=== PATIENT | male | born 1945 | race Caucasian/White ===

== ENCOUNTER 2023-04-07 12:19 | Emergency (ER) | payer MEDICARE, OTHER, SELFPAY ==
[2023-04-07 12:22] VITALS: BP 148/85; PULSE 72; RESP 14; TEMP 36.4; O2SAT 92; BMI 35.9
--- NOTE | 2023-04-07 12:56 | CT_ITS ---
HISTORY: pain. Tingling around right ear, history of throat cancer. TECHNIQUE: Helically acquired images were obtained of the neck without contrast. A radiation dose optimization technique was used for this scan. 299 images. COMPARISON: None. FINDINGS: NASOPHARYNX: Unremarkable. SUPRAHYOID NECK: Unremarkable oropharynx, oral cavity, parapharyngeal space, and retropharyngeal space. INFRAHYOID NECK: Mild soft tissue thickening of the epiglottis, supraglottic larynx with left asymmetry extending to the hypopharynx and left vocal folds. Mild anterior subcutaneous edema THYROID: Diminutive. SALIVARY GLANDS: Fatty replacement bilaterally. LYMPH NODES: No cervical or supraclavicular lymphadenopathy. VASCULAR STRUCTURES: Calcified carotid plaque noted. ORBITS: Bilateral lens resections. PARANASAL SINUSES: Small frontal ethmoid mucous retention cyst. MASTOID AIR CELLS: Clear. OSSEOUS STRUCTURES: Right mandibular molar extraction site noted. Degenerative changes of the cervical spine with anterior osteophytes noted. Midline sternotomy. LUNG APICES: Mild scarring. CT/Soft Tissue Neck without Contr IMPRESSION: Mild soft tissue thickening and asymmetry of the epiglottic and larynx without significant airway narrowing, which may be related to posttreatment change. Difficult to exclude tumor recurrence on noncontrast examination. Mild anterior subcutaneous edema without definite fluid collection. Electronically Signed: Yamila Fischer MD at 14:04 EDT ,
--- NOTE | 2023-04-07 13:16 | EX.ED.DYSGE1 ---
HPI History of Present Illness Chief Complaint: Numb/Ting Narrative Narrative: Presents with left facial numbness for a few weeks, it is only the lower part of the face in the mandibular region. He does have a history of prior surgery and cancer in that region. He had radiation. He has no difficulty swallowing. No fevers or chills. No vision changes weakness or any other symptoms. PFSH PFSH Allergy/AdvReac Type Severity Reaction Status Date / Time codeine Allergy Upset Verified 04/07/23 12:21 Stomach Penicillins Allergy Anaphylaxis Verified 04/07/23 12:21 adhesive tape AdvReac Hives Verified 04/07/23 12:21 Social History Smoking Status: Never smoker ROS ROS ED ROS Narrative Past medical history: Reviewed Medications: Reviewed Social history: Noncontributory Review of systems: All systems negative except as indicated General: No fever Eyes: No visual changes ENT: No upper airway congestion, normal voice Musculoskeletal: Denies myalgias no difficulty with ambulation Skin: No rash Neurological: No memory loss, confusion or any focal weakness. Peripheral numbness of the lower part of the face. EXAM Physical Exam Narrative Exam Narrative: Physical exam General: Well nourished, Well developed, No Acute Distress Head: Normocephalic, Atraumatic Eyes: Conjunctiva not pale ENT: Moist mucous membranes. No facial droop. Normal voice. Neck: Supple, Nontender, No lymphadenopathy Cardiovascular: Regular rate, Regular rhythm Respiratory: No distress, CTA bilaterally Abdomen: Soft, Nontender, Nondistended Back: Nontender, Normal Inspection. Negative for: CVA tenderness Extremities: Nontender, No edema Skin: Normal color, No rash Neurological: Alert, Normal Strength, decreased sensation over the mandibular part of the trigeminal nerve region. There is no decreased sensation over the other branches or forehead. Otherwise no other neurological symptoms. Const Vital Signs: 04/07/23 12:22 Temperature 97.6 F L Temperature Source Temporal Pulse Rate 72 Respiratory Rate 14 Blood Pressure 148/85 H Blood Pressure Mean 106 Pulse Ox 92 Oxygen Delivery Method Room Air MDM MDM MDM Narrative Medical decision making narrative: He was unremarkable, there is some edema which could cause patient's peripheral neuropathy, there is no abscess I do not see any signs of infection. I will refer the patient to ENT. If he gets worse he is to return. Radiography Diagnostic Testing: Clinical Impression(s) from Imaging Studies Soft Tissue Neck CT 04/07/23 12:56 IMPRESSION: Mild soft tissue thickening and asymmetry of the epiglottic and larynx without significant airway narrowing, which may be related to posttreatment change. Difficult to exclude tumor recurrence on noncontrast examination. Mild anterior subcutaneous edema without definite fluid collection. Electronically Signed: Yamila Fischer MD at 14:04 EDT , Discharge Plan Triage Chief Complaint: Numb/Ting ED Provider: Hoang Knowles Dx/Rx/DC Orders Clinical Impression: Trigeminal neuropathy, Neck pain Instructions: What Is Peripheral Neuropathy Primary Care Provider: DAMIAN MATTHEWS Referrals: Chava Rosenbaum MD [Med Staff - Active Staff] - 3-5 Days [facility] Doctor,Out of [Non-Staff] - Disposition Disposition: Home, Self Care
--- NOTE | 2023-04-07 13:45 | CM.ED ---
Social Work SW met with patient and patient's and introduced self and role as [facility] SW. Patient seated on chair and agreeable to speak to SW with patient's present. SW inquired about completion of ADs. Patient confirms he has completed his LW and HCPOA naming his , Soraida, as HCPOA with no alternates. Patient reports they are new to the area and haven't provided a copy to [facility]. SW encouraged patient to bring in a copy to add to patient's chart; patient voiced understanding. Marisel Samayoa MSW, DANIELA
== END 2023-04-07 14:19 | disposition home or self-care (01) ==
PROVIDERS: Emergency Provider Emergency Medicine; Visit Provider Emergency Medicine
DX: G50.9 Disorder of trigeminal nerve, unspecified (principal); M54.2 Cervicalgia; R60.9 Edema, unspecified
CPT/HCPCS: 70490; 99282

== ENCOUNTER → 2023-12-10 | Outpatient (CLI) | payer MEDICARE, OTHER, SELFPAY | END | disposition home or self-care (01) | LOC: LABSPEC 10:27 | PROVIDERS: Referring Provider Internal Medicine; Visit Provider Internal Medicine | DX: E87.5 Hyperkalemia (principal) | CPT/HCPCS: 84132 ==

== ENCOUNTER → 2023-12-17 | Outpatient (CLI) | payer MEDICARE, OTHER, SELFPAY ==
--- NOTE | 2023-12-17 16:34 | CT_ITS ---
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 The protocol utilizes one or more of the following dose reduction techniques: automated exposure control, adjustment of mA and/or kV according to patient size,and/or use of iterative reconstruction technique. IV Contrast dosage and agent: IV 75mL Isovue-370 RADIATION DOSAGE (If Supplied By Facility): CTDIvol = ( 17.86 ) mGy, DLP = ( 571.01 ) mGycm COMPARISON: CT Soft Tissue-NeckOct 2022 1:14pm FINDINGS: NASOPHARYNX: Unremarkable. SUPRAHYOID NECK: Unremarkable oropharynx, oral cavity, parapharyngeal space, and retropharyngeal space. There is chronic thickening and straightening of the epiglottis most likely due to scarring. INFRAHYOID NECK: Unremarkable larynx, hypopharynx, and supraglottis. THYROID: No focal lesions. SALIVARY GLANDS: Fatty infiltration of the submandibular glands. Normal parotid and sublingual glands. LYMPH NODES: No cervical or supraclavicular lymphadenopathy. VASCULAR STRUCTURES: Unremarkable. VISUALIZED PORTIONS OF THE ORBITS, PARANASAL SINUSES, MASTOID AIR CELLS AND SKULL BASE: Unremarkable. BONES: Unremarkable. THORACIC INLET: Clear lung apices. CT/Soft Tissue Neck WITH Contrast IMPRESSION: There is no evidence of recurrent neoplasm or metastatic disease. Electronically Signed: Mikie Way MD at 0:15 EDT ,
[2023-12-17 17:07] LABS: CREATININE FINGERSTICK < 1.0 mg/dL (0.70-1.30); EGFR FINGERSTICK > 60.0000 mL/min (>60)
== END | disposition home or self-care (01) ==
LOC: CT 16:31
PROVIDERS: Visit Provider Internal Medicine
DX: C02.9 Malignant neoplasm of tongue, unspecified (principal); H92.02 Otalgia, left ear
CPT/HCPCS: 70491; Q9967

== ENCOUNTER 2024-02-06 13:30 | Outpatient (RCR) | payer MEDICARE, OTHER, SELFPAY ==
--- NOTE | 2024-01-06 12:22 | HP.PTEVAL ---
Patient's Visit Information Visit Information Visit Information: AUSTIN POWELL is a 78 year old M referred to Physical Therapy by Dr. Candace Nino MD with a diagnosis of DDD, sciatica. Date of Evaluation: 01/06/24 Physical Therapist: Imer Silva, DPT, OCS, CSCS Visit Plan Frequency: 3x /Week Duration: 4-6 Weeks Plan: 3x/week for 4-6 weeks as needed for 1. NS education and core strength mat 2. rollout and MH and stretch to LB, HS B and quads, stretch psoas. LB ROM exercises Progress to HEP IE HEP: PPT 15x, seated flexion 10x and NS standing position education with HO Subjective Subjective: Dr. Nino sent over b/c he gets pain in R leg lower and cannot stand any further. it is sciatic. Has also pain under buttocks in both legs. No back pain to speak of at least non unusual. Leg pain has been for a month or so for no apparent reason. Gone with sitting. No other treatment, he does not like meds. Considered chiropractor. No regular exercises. Walking is main exercise but cannot go as far as he wants to. Can only stand and talk for 10 minutes. Not employed. Sleep is OK as far as this is concerned. Basic ADLs are fine. Steps ar enot a problem. Hobbies : 2 antique cars but can';t work on them. Goes to car shows but has to sit. Pain R leg pain: Pain Intensity (Out of 10): 0 Pain Intensity Range: 0 and 7 Objective Objective: Walks with cane in R UE mod I, and can walk safely without it. Traser chair and bed stiff but I. Good balance. Lb AROM very stiff, mx limited in flexion and extension and extension gives some back pain, SB mod limited. quads and HS are max tight B with pain lying flat, + kathi test, and -35 90/90 test B. HSR>L tender to palpation. LE joints and AROM WFL and no asymmetries. reflexes 2/3 patella and achilles B sensation LE WNL to gross light touch. strength 4/5 B LE, core at 3/5 ext adn flexion. - slump, - SLR, weakness noted in core with seated hip flexion test and lean. - FIDENCIO, - FADDIR Balance/Special Test Scores Oswestry Low Back Score: 8 Goals Goal 1:: I appropriate HEP to limit future problems Goal Time Frame: 4-6 Weeks Goal 2:: Lie flat on back without back pain Goal Time Frame: 4-6 Weeks Goal 3:: oswestry LB 4 or better Goal Time Frame: 4-6 Weeks Goal 4:: stand 20 minutes without leg pain increase Goal Time Frame: 4-6 Weeks Rehabilitation Potential Physical Therapy Diagnosis: stiffness and DDD in LB effecting standing, walking quality of life. Rehabilitation Potential: Fair Anticipated Interventions Patient/Client Instruction: Educate patient on: Condition and Plan of Care For the Purpose of:: To decrease pain, To increase ROM, To improve muscle performance and motor function, To increase tolerance to activity/condition/position, To improve ability of physical actions for home/community/work/leisure and To improve gait and locomotor functions Therapeutic Exercise to Include: Strength training, Postural training, Gait and locomotor training, Passive ROM, Active ROM and Dynamic Lumbar Stabilization For the Purpose of:: To decrease pain, To increase ROM, To improve nutrient delivery to tissue, To improve muscle performance and motor function, To increase tolerance to activity/condition/position, To improve ability of physical actions for home/community/work/leisure and To improve gait and locomotor functions Manual Therapy Techniques to Include: Mobilization, Passive ROM and Soft tissue mobilization For the Purpose of:: To decrease pain, To increase ROM, To improve nutrient delivery to tissue, To improve muscle performance and motor function and To increase tolerance to activity/condition/position Thermo therapy (hot pack): Yes For the Purpose of:: To improve nutrient delivery to tissue Text: Thank you for the opportunity to evaluate your patient. For Medicare and Medicare HMO plans, please review the plan of care and approve it. It will need to be FAXED BACK to us at [phone] for Medicare purposes. For Medicare only, by signing this I certify the plan of care. Please let me know if there are questions or concerns regarding this plan of care. Physician Signature: Date:
--- NOTE | 2024-02-06 14:15 | HP.PTDCSUM ---
Discharge Summary D/C summary: It has been my pleasure to treat AUSTIN POWELL referred by Dr. Candace Nino MD, with the diagnosis of DDD, sciatica for a total of 12 visit(s). Discharge Date: 02/06/24 Please see the following information for a summary of their discharge status. Subjective Subjective: Feels like things are better. Don't seem to have poasterior leg pain and R leg is much less intense. Feels like he can do the exercises and use back machine at home and continue improvement. Saw doctor yesterday and is Ok with plan. R leg pain 5/10 with walking and gone with sitting, much better than it used to be. Still walking about 20 minutes and then needs to rest. Pain R leg pain: Pain Intensity (Out of 10): 0 Overall Improvement % Improvement: 50 Objective Objective/Function: ROM flexion still limited and stiff, ext stiff, walking I short distances without gait deviations. Longer walks>20 minutes is where his pain kicks in and limping subcjectvely Goals Goal 1:: I appropriate HEP to limit future problems Goal Progress: Goal Met Goal 2:: Lie flat on back without back pain Goal Progress: Goal Met Goal 3:: oswestry LB 4 or better Goal Progress: Progressing Goal 4:: stand 20 minutes without leg pain increase Goal Progress: Not Progressing Plan Plan: d/c to HEP D/C Information Discharge Comments: Will contact doctor if worsens again. d/c sentence: If there are questions or concerns regarding this patient's physical therapy, please feel free to call me at [phone]. Thank you for the referral of this patient. Sincerely, Imer Silva, DPT, OCS, CSCS Balance/Gait/Functional tests Balance/Special Test Scores Oswestry Low Back Score: 8 Improvement % Improvement: 50
== END 2024-02-06 19:00 | disposition home or self-care (01) ==
LOC: PT 13:30
PROVIDERS: Visit Provider Internal Medicine
DX: M51.36 Other intervertebral disc degeneration, lumbar region (principal); M54.31 Sciatica, right side; M54.32 Sciatica, left side
CPT/HCPCS: 97012; 97110; 97161; 97530

== ENCOUNTER → 2024-03-18 | Outpatient (CLI) | payer OTHER, SELFPAY ==
--- NOTE | 2024-03-18 15:38 | CT_ITS ---
STUDY: CT SOFT TISSUE NECK WITH CONTRAST REASON FOR EXAM: Male, 78 years old. POSS OSTEOMYELITIS JAW. History of a abscessed tooth. 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 RADIATION DOSAGE (If Supplied By Facility): CTDIvol = ( 20.01 ) mGy, DLP = ( 504.97 ) mGycm TECHNIQUE: The patient was scanned in a multi-detector CT scanner. High resolution transaxial imaging was performed following intravenous administration of IV 75mL Isovue-300. Sagittal and coronal images were reconstructed. Individualized dose optimization techniques were used for this CT. COMPARISON: Comparison is made with prior study dated December 17, 2023. FINDINGS: Stable postsurgical changes in the left-sided neck following resection. No recurrent mass is seen. Normal visualized nasopharynx. Normal retropharyngeal space. Normal perivertebral space. Normal visualized bilateral faucial tonsils. The visualized tongue, tongue base and oropharynx are normal. The visualized cervical lymph nodes (levels I-) are within normal size limits, and maintain normal morphology. There is no demonstrated solid or cystic mass lesion. There is no abnormal contrast enhancement. Normal epiglottis, bilateral vallecula and hypopharynx. The pre-epiglottic and paraglottic adipose spaces are normal. Normal visualized bilateral piriform sinuses, aryepiglottic folds, vocal cords, and arytenoid-cricoid articulations. Normal subglottic trachea. Normal bilateral lobes of the thyroid gland. Normal visualized pulmonary apices. Normal visualized paranasal sinuses. There is multilevel degenerative changes of the cervical spine. No evidence of osteomyelitis of the mandible. Degenerative changes of the cervical spine. CT/Soft Tissue Neck WITH Contrast IMPRESSION: Stable examination. Electronically Signed: Satnam Becker MD at 9:13 EDT ,
[2024-03-18 16:09] LABS: CREATININE FINGERSTICK < 1.0 mg/dL (0.70-1.30); EGFR FINGERSTICK > 60.0000 mL/min (>60)
== END | disposition home or self-care (01) ==
LOC: CT 15:36
PROVIDERS: Referring Provider Nurse Practitioner Family; Visit Provider Nurse Practitioner Family
DX: Z01.812 Encounter for preprocedural laboratory examination (principal); M86.9 Osteomyelitis, unspecified
CPT/HCPCS: 70491; Q9967

== ENCOUNTER → 2024-07-31 | Outpatient (CLI) | payer OTHER, SELFPAY ==
--- NOTE | 2024-07-31 09:49 | CT_ITS ---
PROCEDURE: SINUS/FACIAL BONE REASON FOR EXAM: History of squamous cell carcinoma of the tongue. Osteoradionecrosis of the mandible. Chronic kidney disease stage 3. Hypertension. Coronary artery disease. TECHNIQUE: CT of the paranasal sinuses without contrast. Contiguous axial scans of 1.25 mm slice thicknesses. CONTRAST: Not given. COMPARISON: CT soft tissue neck dated 03/18/2024. FINDINGS: Frontal: Frontal sinuses and frontoethmoidal recesses appear clear. Ethmoid: Ethmoid air cells appear clear. Sphenoid: Sphenoid sinuses and sphenoethmoidal recesses appear clear. Maxillary: Maxillary sinuses appear clear. The ostiomeatal units appear widely patent. Turbinates: Unremarkable. Nasal Septum: Rightward deviation. Mastoids/Middle Ears: Clear at visualized levels. Neck: Stable postoperative changes, left side of the neck. No recurrent masses. No suspicious adenopathy. Vasculature: Atherosclerotic calcific disease involving the carotids. Other osseous structures: Chronic erosive change involving the right hemimandible. Mild ossification in the adjacent soft tissues. Artifact from dental enhancements cervical spondylosis. CT/Sinus/Facial Bone IMPRESSION: 1. No abnormalities involving the paranasal sinuses. 2. Stable postoperative findings involving the left side of the neck. 3. Chronic erosive changes involving the right hemimandible most likely from p revious infection. 4. Rightward deviation nasal septum. 5. Other nonacute findings detailed above. One or more dose reduction techniques were used (e.g., Automated exposure contr ol, adjustment of the mA and/or kV according to patient size, use of iterative reconstruction technique). Reading Location: [facility]
== END | disposition home or self-care (01) ==
PROVIDERS: PCP Internal Medicine
DX: M27.2 Inflammatory conditions of jaws (principal); M86.9 Osteomyelitis, unspecified
CPT/HCPCS: 70486

== ENCOUNTER → 2024-08-17 | Outpatient (CLI) | payer MEDICARE, OTHER, SELFPAY ==
--- NOTE | 2024-08-17 16:11 | MRI_ITS ---
PROCEDURE: SPINE LUMBAR (ROUTINE) REASON FOR EXAM: Bilateral leg numbness. Pain. TECHNIQUE: Noncontrast lumbar spine MRI. COMPARISON: Lumbar spine radiograph from 12/25/2023. FINDINGS: Lumbar vertebral bodies maintain a normal height. There is mild levoscoliosis of the lumbar spine. There is diminished signal intensity involving the discs from L3-S1 related to degenerative disc disease. There are Modic type 2 endplate degenerative changes at L5-S1 and mildly at L3-L4. No acute fracture or subluxation is identified. The tip of the conus medullaris terminates at L1-L2 and signal intensity of the included spinal cord is within normal limits. Paraspinous musculature is unremarkable. Left renal cysts are identified. Individual levels: L1-2: No disc herniation, central canal stenosis, or significant neural foraminal narrowing. Mild facet arthropathy is present. L2-3: Mild disc bulge and mild facet arthropathy with no significant central canal stenosis or neural foraminal narrowing. L3-4: Circumferential disc bulge and facet/flavum hypertrophy results in severe central canal stenosis. Moderate to severe right and moderate left neural foraminal narrowing is present. L4-5: Mild anterolisthesis with circumferential disc bulge and facet/flavum hypertrophy results in significant severe central canal stenosis. Moderate to severe right and moderate left neural foraminal narrowing is present. L5-S1: Disc bulge and facet arthropathy with no significant central canal stenosis. Moderate right and [id number] left neural foraminal narrowing is present. MRI/Spine Lumbar (Routine) IMPRESSION: 1. Multilevel degenerative disc disease and spondylosis with significant severe central canal stenosis at L4-L5 as well as severe central canal stenosis at L3-L4. Multilevel varying degrees of neural foramina l narrowing are present and greatest from L3-L5. 2. Levoscoliosis. [facility]
== END | disposition home or self-care (01) ==
LOC: MRI 16:08
PROVIDERS: PCP Internal Medicine; Referring Provider Internal Medicine; Visit Provider Internal Medicine
DX: M51.379 Other intervertebral disc degeneration, lumbosacral region without mention of lumbar back pain or lower extremity pain (principal)
CPT/HCPCS: 72148

== ENCOUNTER 2024-08-18 12:50 | Emergency (ER) | payer MEDICARE, OTHER, SELFPAY ==
[2024-08-18 12:51] VITALS: BP 168/88; PULSE 73; RESP 15; TEMP 36.1; O2SAT 96; BMI 34.3
[2024-08-18 13:51] VITALS: BP 168/86; PULSE 66; RESP 19; O2SAT 97
--- NOTE | 2024-08-18 13:54 | ED.VIS.CHEST ---
HPI History of Present Illness Chief Complaint: Chest Pain Informant: patient Narrative Narrative: Patient is an 79-year-old male with history of oropharyngeal cancer, CKD 3, coronary artery disease/IA, COPD, obstructive sleep apnea and recent jaw surgery (outpatient) presenting with episodes of chest pain. Patient states that since last night he has been having intermittent pains in his chest. He states that for started with a shocking sensation rating from his right shoulder to his left lower chest. He notes he has had intermittent episodes of the shooting/shocking pain going across his chest. Just prior to my arrival he had another 1 that was more in his epigastric/lower chest. They are anterior. They do not radiate to his neck or back. He denies any aggravating or alleviating factors. Notes that he did have MRI of his lumbar spine yesterday because he has been having intermittent leg pains at night. States this does not feel anything like those pains. Denies having any pacemaker or ICD. Denies any other chest pains. Denies any shortness of breath. Denies any swelling of his legs. 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 Right renal mass Chronic kidney disease, stage 3a Dysphagia Osteoradionecrosis of jaw Sciatica Hypertension Hyperlipidemia Gout Peripheral neuropathy CAD (coronary artery disease) DDD (degenerative disc disease) Obesity Hypothyroid Facial paresthesia Skin cancer Overactive bladder Osteoarthritis COPD (chronic obstructive pulmonary disease) BRADY (obstructive sleep apnea) Diabetes History of abscessed tooth Thrombocytopenia Home Medications ?Medication ?Instructions ?Recorded ?Last Taken ?Type allopurinol 100 mg tablet 100 mg PO QDAY 05/13/24 Unknown History aspirin 81 mg tablet,delayed 81 mg PO QDAY 05/13/24 Unknown History release cholecalciferol (vitamin D3) 50 50 mcg PO QDAY 05/13/24 Unknown History mcg (2,000 unit) capsule ferrous sulfate 325 mg (65 mg 325 mg PO QDAY 05/13/24 Unknown History iron) tablet (Feosol) levothyroxine 125 mcg capsule 125 mcg PO QDAY 05/13/24 Unknown History losartan 25 mg tablet 25 mg PO QDAY 05/13/24 Unknown History rosuvastatin 20 mg tablet 20 mg PO QDAY 05/13/24 Unknown History tiotropium 2.5 mcg-olodaterol 2.5 2 puff inhalation Q24H 05/13/24 Unknown History mcg/actuation mist for inhalation (Stiolto Respimat) albuterol sulfate 90 mcg/actuation 2 puff inhalation Q6H PRN 05/14/24 Unknown History aerosol inhaler magnesium oxide 420 mg PO BID 06/01/24 Unknown History pentoxifylline 400 mg 400 mg PO BID 06/01/24 Unknown History tablet,extended release cetirizine 10 mg tablet 10 mg PO QDAY 06/16/24 Unknown History chlorhexidine gluconate 0.12 % PO BID 06/16/24 Unknown History mouthwash metformin 500 mg tablet 1,000 mg PO QDAY 06/16/24 Unknown History multivitamin 1 tab PO QAM 06/16/24 Unknown History Allergy/AdvReac Type Severity Reaction Status Date / Time empagliflozin Allergy Intermediate PT UNSURE Verified 08/18/24 13:02 OF REACTION codeine Allergy Upset Verified 08/18/24 13:02 Stomach Penicillins Allergy Anaphylaxis Verified 08/18/24 13:02 adhesive tape AdvReac Hives Verified 08/18/24 13:02 Family History Mother Cancer Father Asthma Grandmother Heart disease Myocardial infarction Sudden cardiac CVA (cerebral vascular accident) Son CVA (cerebral vascular accident) Diabetes Son Schizophrenia Son Osteoarthritis Psoriasis Surgical History History of hernia repair History of cataract extraction Hx of tonsillectomy History of appendectomy Status post double vessel coronary artery bypass (~1989) Social History Smoking Status: Former smoker alcohol intake: current alcohol intake frequency: holidays/special occasions only substance use type: does not use ROS ROS ED Constitutional Constitutional ED: Denies chills or fever(s) Cardiovascular Cardiovascular: Reports as per HPI and chest pain; Denies palpitations Respiratory/Chest Respiratory/Chest: Denies cough or dyspnea Gastrointestinal Gastrointestinal: Denies nausea or vomiting Musculoskeletal Musculoskeletal: Denies arthralgias or myalgias Integumentary Denies rash Neurologic Neurologic: Denies paresthesias or weakness Hematologic/Lymphatic Hematologic/Lymphatic: Denies easy bleeding or easy bruising EXAM Physical Exam Const Vital Signs: 08/18/24 12:51 08/18/24 13:51 08/18/24 14:00 Temperature 96.9 F L Temperature Source Temporal Pulse Rate 73 66 Respiratory Rate 15 19 H Blood Pressure 168/88 H 168/86 H Blood Pressure Mean 114 113 Pulse Ox 96 97 96 Oxygen Delivery Method Room Air Room Air 08/18/24 14:00 08/18/24 16:00 Temperature Temperature Source Pulse Rate 66 69 Respiratory Rate 19 H 18 Blood Pressure 178/88 H Blood Pressure Mean 118 Pulse Ox 98 98 Oxygen Delivery Method Positive well nourished and well developed General Appearance ED: well developed and NAD HEENT Reports moist mucous membranes Eyes PERRL Neck supple and no JVD Chest Wall inspection of chest normal and palpation of chest normal Resp normal respiratory effort and clear to auscultation bilaterally Cardio regular rate and regular rhythm Peripheral Pulses: radial pulses present and dorsalis pedis pulses present GI normal to inspection, nondistended, normoactive bowel sounds, soft to palpation and non-tender Extremity normal to inspection General Extremety ED: Negative for edema General Extremity: Negative for edema Neuro oriented x3 Sensorium / Orientation: awake and alert Motor Exam: Negative for general weakness Psych mental status grossly normal Skin no rashes or lesions noted and no wounds Heart Score History: Slightly/Non-Suspicious ECG: Normal Age: >/= 65 years Risk Factors: >/= 3 Risk Factors or History of CAD Troponin: </= Normal Limit Score: 4 MDM MDM MDM Narrative Medical decision making narrative: Patient evaluated for shocking episodes of chest pain that started yesterday afternoon. He does not tell his about until 11 AM today. Does have a history of coronary artery bypass surgery. Cardiac workup including high sensitive troponin x 2, CBC and BMP obtained which is largely normal. He has a history of low magnesium so I did check that. This was normal. He has mild hyponatremia however patient reports a chronic history of this. Patient does not seem to have further episodes in the emergency room. Chest x-ray reviewed by myself as well as radiology does not show any acute process. Work up largely normal. Patient be discharged home. He is comfortable. Discussed with pain could be radicular in nature given the sharp shocking nature. Also discussed that could be associated with the scar tissue/chest wall pain from prior sternotomy. He will follow-up outpatient with his primary care doctor. Given return precautions to the emergency room Lab Data Labs: Laboratory Results - last 24 hr 08/18/24 08/18/24 13:13 16:06 WBC 8.7 RBC 4.21 L Hgb 12.8 L Hct 39.7 L MCV 94.3 H MCH 30.4 MCHC 32.2 RDW Std Deviation 44.2 H RDW Coeff of Jordi 12.8 Plt Count 133 L MPV 11.4 Neut % (Auto) Not Reportable Absolute Neuts (auto) 4.8 Absolute Lymphs (auto) 3.46 Neutrophils % (Manual) 38 L Band Neutrophils % 1 Lymphocytes % (Manual) 40 Monocytes % (Manual) 18 H Metamyelocytes % 2 H Myelocytes % 1 H Diff Path Review May foll Atypical Lymphocytes 1+ Platelet Estimate SLT DEC RBC Morphology NORM C+C Sodium 130 L Potassium 4.1 Chloride 93 L Carbon Dioxide 30.0 Anion Gap 7 BUN 13 Creatinine 1.08 Estim Creat Clear Calc 58.37 Est GFR (MDRD) Af Amer 84 Est GFR (MDRD) Non-Af 70 BUN/Creatinine Ratio 12.0 Glucose 145 H Calcium 9.5 Magnesium 1.9 Troponin I High Sens 39 41 Radiography Chest X-Ray - ED: 2 View, Read by ED Physician, Read by Radiologist and No Acute Disease Diagnostic Testing: Clinical Impression(s) from Imaging Studies Chest X-Ray 08/18/24 14:10 IMPRESSION: No active cardiopulmonary disease. Reading Location: [facility] Rhythm Strip Rhythm Strip: Sinus Rhythm Rate: 70 Ectopy: None EKG Initial EKG: Attestation: I personally reviewed and interpreted this EKG as follows: Interpretation: Sinus Rhythm Comments: Normal sinus rhythm rate of 70 bpm Left axis deviation Incomplete right bundle carlene block Normal ST segments Prior EKG tracings: available for review Prior: Unchanged Discharge Plan Triage Chief Complaint: Chest Pain ED Provider: Genesis Urias Dx/Rx/DC Orders Clinical Impression: Chest pain Instructions: ED Chest Pain, Noncardiac Prescriptions: No Action albuterol sulfate 90 mcg/actuation HFA aerosol inhaler 2 puff inhalation Q6H PRN multivitamin Tablet 1 tab PO QAM chlorhexidine gluconate 0.12 % mouthwash PO BID rosuvastatin 20 mg tablet 20 mg PO QDAY allopurinol 100 mg tablet 100 mg PO QDAY losartan 25 mg tablet 25 mg PO QDAY levothyroxine 125 mcg capsule 125 mcg PO QDAY cholecalciferol (vitamin D3) 50 mcg (2,000 unit) capsule 50 mcg PO QDAY aspirin 81 mg tablet,delayed release (DR/EC) 81 mg PO QDAY ferrous sulfate [Feosol] 325 mg (65 mg iron) tablet 325 mg PO QDAY Stiolto Respimat 2.5-2.5 mcg/actuation mist 2 puff inhalation Q24H magnesium oxide 400 mg magnesium capsule 420 mg PO BID pentoxifylline 400 mg tablet extended release 400 mg PO BID Rx Instructions: must administer with a meal/food metformin 500 mg tablet 1,000 mg PO QDAY cetirizine 10 mg tablet 10 mg PO QDAY Primary Care Provider: Candace Nino Referrals: Candace Nino MD [Primary Care Provider] - Activity Restrictions/Additional Instructions: Your cardiac workup today was largely normal. Your sodium was mildly low on your labs (130). This can be from decreased sodium intake or from certain blood pressure medications including losartan. Please follow-up with your primary care doctor to have this rechecked. Print Language: [place] Disposition Disposition: Home, Self Care Discharge Date/Time: 08/18/24 16:56
[2024-08-18 14:00] VITALS: BP 178/88; PULSE 66; RESP 19; O2SAT 96; O2SAT 98
[2024-08-18] MEDS: Aspirin 81 MG TAB.CHEW 324 MG PO (14:09)
--- NOTE | 2024-08-18 14:10 | RAD_ITS ---
PROCEDURE: CHEST PA AND LATERAL REASON FOR EXAM: Chest pain TECHNIQUE: Frontal and lateral views of the chest. COMPARISON: None. FINDINGS: The heart size is normal. Aorta is atherosclerotic and tortuous. The mediastinal contour is unremarkable. The lungs are clear. Multilevel spondylosis. Median sternotomy wires. Cardiac monitoring leads overlie the chest wall. RAD/Chest PA and Lateral IMPRESSION: No active cardiopulmonary disease. Reading Location: [facility]
[2024-08-18 14:17] LABS: Differential Indicated MANUAL DIFF; Hematocrit 39.7 % (40-54); Hemoglobin 12.8 g/dL (13.0-16.5); Mean Corp Hgb Conc 32.2 g/dL (32-36); Mean Corpuscular Hgb 30.4 pg (27.0-32.0); Mean Corpuscular Volume 94.3 fL (80-94); Mean Platelet Vol. 11.4 fl (6.2-12.0); POSITIVE COUNT YES; POSITIVE DIFFERENTIAL YES; POSITIVE MORPHOLOGY YES; Platelet Count 133 K/mm3 (150-450); RBC Distribution Width CV 12.8 % (11.6-14.6); RBC Distribution Width SD 44.2 fl (35.1-43.9); Red Blood Count 4.21 M/mm3 (4.6-6.2); White Blood Count 8.7 K/mm3 (4.4-11.0)
[2024-08-18 14:38] LABS: Anion Gap 7 (5-15); BUN 13 mg/dL (7-18); Calcium,Total 9.5 mg/dL (8.5-10.1); Chloride 93 mmol/L (98-107); Creatinine, Serum 1.08 mg/dL (0.70-1.30); EST Glomerular Filtration Rate 70 mL/min (>60); Est Glom Filt Rate - Afr Amer 84 mL/min (>60); Estimated Creatinine Clearance 58.37 ml/min; Glucose 145 mg/dL (74-106); Magnesium 1.9 mg/dL (1.6-2.6); Potassium 4.1 mmol/L (3.5-5.1); Sodium Level 130 mmol/L (136-145); Troponin-I HS (w/2H Reflex) 39 pg/mL (3.0-78.0)
[2024-08-18 14:48] LABS: Absolute Lymphocyte Count 3.46 X10^3/uL (0.83-4.51); Absolute Neutrophil Count 4.8 X10^3/uL (2.0-7.7); Lymphocyte 40 % (19-41); Metamyelocyte 2 % (0-1); Monocyte 18 % (0-10); Myelocyte 1 % (0-0); Neutrophil-Band 1 % (0-5); Neutrophil-Segmented 38 % (47-70)
[2024-08-18 14:49] LABS: Atypical Lymphocyte 1+ %; Platelet Estimate SLT DEC (ADEQ); Red Cell Morphology NORM C+C NORMAL (NORM C&C)
[2024-08-18 15:58] LABS: Reflex Troponin-HS? (from REC) Y
[2024-08-18 16:00] VITALS: PULSE 69; RESP 18; O2SAT 98
[2024-08-18 16:38] LABS: Troponin-I HS 41 pg/mL (3.0-78.0)
[2024-08-19 14:22] LABS: Pathologist Review Reviewed
== END 2024-08-18 16:56 | disposition home or self-care (01) ==
PROVIDERS: Emergency Provider Emergency Medicine; PCP Internal Medicine; Visit Provider Emergency Medicine
DX: R07.9 Chest pain, unspecified (principal); J44.9 Chronic obstructive pulmonary disease, unspecified; E11.40 Type 2 diabetes mellitus with diabetic neuropathy, unspecified; E11.22 Type 2 diabetes mellitus with diabetic chronic kidney disease; N18.30 Chronic kidney disease, stage 3 unspecified; I45.10 Unspecified right bundle-branch block; E87.1 Hypo-osmolality and hyponatremia; R79.0 Abnormal level of blood mineral; I12.9 Hypertensive chronic kidney disease with stage 1 through stage 4 chronic kidney disease, or unspecified chronic kidney disease; I25.10 Atherosclerotic heart disease of native coronary artery without angina pectoris; I25.2 Old myocardial infarction; E78.5 Hyperlipidemia, unspecified; M10.9 Gout, unspecified; E03.9 Hypothyroidism, unspecified; G47.33 Obstructive sleep apnea (adult) (pediatric); Z95.1 Presence of aortocoronary bypass graft; Z88.0 Allergy status to penicillin; Z79.82 Long term (current) use of aspirin; Z79.84 Long term (current) use of oral hypoglycemic drugs; Z98.890 Other specified postprocedural states; Z79.899 Other long term (current) drug therapy; Z79.890 Hormone replacement therapy; Z85.828 Personal history of other malignant neoplasm of skin; Z87.891 Personal history of nicotine dependence; Z85.818 Personal history of malignant neoplasm of other sites of lip, oral cavity, and pharynx
CPT/HCPCS: 71046; 80048; 83735; 84484; 85025; 93005; 99284; A4216

== ENCOUNTER → 2024-09-24 | Outpatient (CLI) | payer MEDICARE, OTHER, SELFPAY ==
[2024-09-24 10:59] LABS: Hematocrit 43.6 % (40-54); Hemoglobin 14.3 g/dL (13.0-16.5); Mean Corp Hgb Conc 32.8 g/dL (32-36); Mean Corpuscular Volume 94.6 fL (80-94); Mean Platelet Vol. 11.2 fl (6.2-12.0); POSITIVE COUNT YES; POSITIVE MORPHOLOGY YES; Platelet Count 148 K/mm3 (150-450); RBC Distribution Width CV 12.9 % (11.6-14.6); Red Blood Count 4.61 M/mm3 (4.6-6.2); White Blood Count 7.1 K/mm3 (4.4-11.0)
[2024-09-24 11:05] LABS: Differential Indicated MANUAL DIFF
[2024-09-24 11:19] LABS: AST(SGOT) 18 U/L (<=37); Alanine Aminotransfer ALT/SGPT 14 U/L (<=46); Albumin, Serum 4.8 g/dL (3.4-4.8); Alkaline Phosphatase 76 U/L (40-129); Anion Gap 14 (5-15); BUN 12 mg/dL (4-19); BUN/Creat Ratio 11.5 RATIO (10-20); Calcium,Total 9.9 mg/dL (7.6-11.0); Carbon Dioxide 25.2 mmol/L (21.0-32.0); Chloride 95 mmol/L (98-108); Creatinine, Serum 1.06 mg/dL (0.70-1.20); EST Glomerular Filtration Rate 71 (>60); Globulin 2.4 g/dL (2.2-4.2); Glucose 109 mg/dL (70-99); Potassium 4.9 mmol/L (3.3-5.1); Protein, Total 7.2 g/dL (5.9-8.4); Sodium Level 135 mmol/L (133-145); Thyroid Stim Hormone (TSH) 0.431 uIU/mL (0.300-4.200); Total Bilirubin 0.37 mg/dL (0.00-1.30)
[2024-09-24 12:44] LABS: Basophil 1 % (0-1); Lymphocyte 31 % (19-41); Metamyelocyte 4 % (0-1); Monocyte 18 % (0-10); Myelocyte 1 % (0-0); Neutrophil-Band 5 % (0-5); Neutrophil-Segmented 40 % (47-70); Total Cells Counted 100 (MANUAL DIFF)
[2024-09-24 12:49] LABS: Platelet Estimate ADEQUATE (ADEQ); Reactive Lymphocyte 2+
[2024-09-24 12:50] LABS: Pathologist Review May foll
[2024-09-24 12:57] LABS: Absolute Neutrophil Count 3.2 X10^3/uL (2.0-7.7)
[2024-09-24 12:58] LABS: Absolute Lymphocyte Count 2.21 X10^3/uL (0.83-4.51)
== END | disposition home or self-care (01) ==
LOC: LABSPEC 10:19
PROVIDERS: PCP Internal Medicine; Referring Provider Internal Medicine; Visit Provider Internal Medicine
DX: E87.1 Hypo-osmolality and hyponatremia (principal); R20.2 Paresthesia of skin
CPT/HCPCS: 80053; 84443; 85025

== ENCOUNTER 2024-09-25 07:52 | Observation (INO) | payer MEDICARE, OTHER, SELFPAY ==
[2024-09-25] VITALS (8 sets, daily range): BP systolic 155–202; BP diastolic 64–105; PULSE 56–79; RESP 16–18; TEMP 36.6–36.7; O2SAT 93–99; BMI 34.8; BMI 33.8
--- NOTE | 2024-09-25 08:10 | EKG12_ITS ---
Test Reason : DIZZINESS Blood Pressure : */* mmHG Vent. Rate : 56 BPM Atrial Rate : 56 BPM P-R Int : 196 ms QRS Dur : 108 ms QT Int : 434 ms P-R-T Axes : 36 -62 19 degrees QTcB Int : 418 ms Sinus bradycardia Left axis deviation Low voltage QRS Incomplete right bundle branch block Inferior infarct (cited on or before 18-Aug-2024) Abnormal ECG When compared with ECG of 18-Aug-2024 12:57, No significant change was found Confirmed by Crow Strange ([id number]), film and video editor YASMANY KOHLI ([id number]) on 09/30/2024 10:06:42 AM Referred By: Confirmed By: Crow Strange
--- NOTE | 2024-09-25 08:10 | CT_ITS ---
EXAM: BRAIN/HEAD WITHOUT CONTRAST CLINICAL HISTORY: 79 y/o M with OFF BALANCE and photophobia, history of squamous cell carcinoma of the tongue. COMPARISON: CT sinus/face 07/31/2024. TECHNIQUE: Routine CT imaging of the head without IV contrast. Additional multiplanar reformats were obtained. Dose reduction techniques were used including intermediate exposure control (AEC),iterative reconstruction technique, and/or mA and/or KV dose adjustments based on patient's size. FINDINGS: Stable moderate generalized cerebral volume loss with concordant prominence of the ventricles and subarachnoid spaces. Mild scattered supratentorial white matter hypodensities. Chronic lacunar type infarcts within the right centrum semiovale. The knight-white matter interfaces are otherwise maintained. No acute intracranial hemorrhage or herniation. Prior ocular lens replacements. The orbits are otherwise unremarkable. Tiny retention cyst or polyps within the bilateral frontal sinuses. The visualized paranasal sinuses and mastoids are otherwise unremarkable. No acute calvarial fracture or scalp hematoma. CT/Brain/Head without Contrast IMPRESSION: 1. No acute intracranial finding. 2. Findings of chronic microvascular ischemic changes and age-related changes. Reading Location: [id number]
--- NOTE | 2024-09-25 08:11 | EX.ED.DYSGE1 ---
HPI History of Present Illness Chief Complaint: Dizziness Informant: patient and spouse/S.O. Narrative Narrative: 79-year-old male presenting to the emergency room with the chief complaint of dizziness. Patient states for the past 3 days he has been feeling dizzy. He denies any sense that the room is spinning but he states that when he goes to walk he feels very lightheaded like he is going to fall over. He denies any loss of arm or leg strength or coordination. He states that prior to this happening when he was looking at white buildings they seemed very bright and he would close his eyes for 20 to 30 seconds and then it would go away. He states the lights in the room are extremely bright. He denies headache. He denies any recent trauma or injuries. No new medications. He went to see his primary care doctor yesterday who ordered blood work which she was called last night was told it was normal. He states he has an MRI and a carotid ultrasound ordered. No chest pain palpitations shortness of breath. No recent fevers or illnesses. He denies neck pain. Patient did not take his medications yesterday or today. He states that he did have vertigo about 6 7 years ago and did physical therapy but this feels nothing like it. Towards the end of his ED course he tells me that when he got up this morning he seemed that when he looked at the window and the television they seem to move but that is now what he experienced with his prior vertigo. [facility] Medical History Squamous cell carcinoma of tongue Hx of myocardial infarction Right renal mass Chronic kidney disease, stage 3a Dysphagia Osteoradionecrosis of jaw Sciatica Hypertension Hyperlipidemia Gout Peripheral neuropathy CAD (coronary artery disease) DDD (degenerative disc disease) Obesity Hypothyroid Facial paresthesia Skin cancer Overactive bladder Osteoarthritis COPD (chronic obstructive pulmonary disease) BRADY (obstructive sleep apnea) Diabetes History of abscessed tooth Thrombocytopenia Home Medications ?Medication ?Instructions ?Recorded ?Last Taken ?Type allopurinol 100 mg tablet 100 mg PO QDAY 05/13/24 09/24/24 History aspirin 81 mg tablet,delayed 81 mg PO QDAY 05/13/24 09/24/24 History release cholecalciferol (vitamin D3) 50 50 mcg PO BID 05/13/24 09/24/24 History mcg (2,000 unit) capsule ferrous sulfate 325 mg (65 mg 325 mg PO QDAY 05/13/24 09/24/24 History iron) tablet (Feosol) levothyroxine 125 mcg capsule 125 mcg PO QDAY 05/13/24 09/24/24 History losartan 25 mg tablet 25 mg PO QDAY 05/13/24 09/24/24 History rosuvastatin 20 mg tablet 20 mg PO QDAY 05/13/24 09/24/24 History albuterol sulfate 90 mcg/actuation 2 puff inhalation Q6H PRN 05/14/24 Unknown History aerosol inhaler shortness of breath or wheezing magnesium oxide 800 mg PO BID 06/01/24 09/24/24 History cetirizine 10 mg tablet 10 mg PO QDAY 06/16/24 09/24/24 History chlorhexidine gluconate 0.12 % 15 ml PO BID 06/16/24 09/24/24 History mouthwash metformin 500 mg tablet 500 mg PO BID 06/16/24 09/24/24 History multivitamin 1 tab PO QAM 06/16/24 09/24/24 History Allergy/AdvReac Type Severity Reaction Status Date / Time empagliflozin Allergy Intermediate PT UNSURE Verified 09/25/24 07:53 OF REACTION codeine Allergy Upset Verified 09/25/24 07:53 Stomach Penicillins Allergy Anaphylaxis Verified 09/25/24 07:53 adhesive tape AdvReac Hives Verified 09/25/24 07:53 Family History Mother Cancer Father Asthma Grandmother Heart disease Myocardial infarction Sudden cardiac CVA (cerebral vascular accident) Son CVA (cerebral vascular accident) Diabetes Son Schizophrenia Son Osteoarthritis Psoriasis Surgical History History of hernia repair History of cataract extraction Hx of tonsillectomy History of appendectomy Status post double vessel coronary artery bypass (~1989) Social History Smoking Status: Former smoker alcohol intake: current alcohol intake frequency: holidays/special occasions only substance use type: does not use ROS ROS ED Constitutional Constitutional ED: Denies chills or weight loss Eyes Eyes: Reports other Details: See history of present illness ; Denies blurry vision, change in vision or diplopia ENT ENT ED: Denies ear pain, rhinorrhea or sore throat Cardiovascular Cardiovascular: Denies chest pain, orthopnea, palpitations or racing heartbeat Respiratory/Chest Respiratory/Chest: Denies cough, dyspnea or orthopnea Gastrointestinal Gastrointestinal: Denies abdominal pain, diarrhea, nausea or vomiting Genitourinary Genitourinary ED: Denies dysuria, hematuria or urinary frequency Musculoskeletal Musculoskeletal: Denies arthralgias or myalgias Integumentary Denies abscess or rash Neurologic Neurologic: Reports other Details: See history of present illness ; Denies headache(s), paresthesias or weakness Psychiatric Psychiatric: Denies anxiety, depression, suicidal ideation or suicidal thoughts Endocrine Endocrinology: Denies polydipsia, polyphagia or polyuria Allergic/Immunologic Allergic/Immunologic ED: Denies mouth swelling, tongue swelling or urticaria EXAM Physical Exam Const Vital Signs: 09/25/24 07:53 09/25/24 09:52 09/25/24 10:49 Temperature 97.8 F Temperature Source Oral Pulse Rate 56 L 65 Pulse Rate [Sitting (for 1 minute prior to obtaining)] 79 Pulse Rate [Standing (for 1 minute prior to obtaining)] 76 Respiratory Rate 16 17 Blood Pressure 170/102 H Blood Pressure [Lying] 189/101 H Blood Pressure [Sitting (for 1 minute prior to obtaining)] 202/105 H Blood Pressure [Standing (for 1 minute prior to obtaining)] 172/103 H Blood Pressure Mean 124 Blood Pressure Mean [Lying] 130 Blood Pressure Mean [Sitting (for 1 minute prior to obtaining)] 137 Blood Pressure Mean [Standing (for 1 minute prior to obtaining)] 126 Pulse Ox 94 Oxygen Delivery Method Room Air 09/25/24 11:00 Temperature Temperature Source Pulse Rate 65 Pulse Rate [Sitting (for 1 minute prior to obtaining)] Pulse Rate [Standing (for 1 minute prior to obtaining)] Respiratory Rate 18 Blood Pressure 155/64 H Blood Pressure [Lying] Blood Pressure [Sitting (for 1 minute prior to obtaining)] Blood Pressure [Standing (for 1 minute prior to obtaining)] Blood Pressure Mean 94 Blood Pressure Mean [Lying] Blood Pressure Mean [Sitting (for 1 minute prior to obtaining)] Blood Pressure Mean [Standing (for 1 minute prior to obtaining)] Pulse Ox 97 Oxygen Delivery Method Room Air Positive well nourished and well developed General Appearance ED: well developed and NAD HEENT Reports normocephalic, head/scalp atraumatic and moist mucous membranes Eyes PERRL and EOMs intact bilaterally Neck no lymphadenopathy, supple and no JVD Resp normal respiratory effort and clear to auscultation bilaterally Cardio regular rate, regular rhythm and no murmurs GI normal to inspection, nondistended, normoactive bowel sounds and non-tender Palpation: soft Back/Spine no CVA tenderness and normal ROM Extremity normal to inspection General Extremety ED: Negative for edema General Extremity: Negative for edema Neuro oriented x3 and CN's II-XII intact bilaterally Neuro Narrative: Symptoms are not made worse with sitting up or laying down or turning his head. states that somebody has to be beside him when he walks to keep him from falling down. NIH is 0 Sensorium / Orientation: alert Sensory Exam: sensory level loss detected Motor Exam: strength 5/5 throughout Psych mental status grossly normal Mood & Affect: Negative for depressed or tearful Skin no rashes or lesions noted and no wounds MDM MDM MDM Narrative Medical decision making narrative: Differential diagnosis includes peripheral vertigo central vertigo intracranial pressure malignancy stroke dehydration anemia cardiac disease UTI viral syndrome I reviewed the patient's labs from yesterday. His CBC grossly unchanged from yesterday. BMP is not significantly changed. Liver enzymes within normal limits. Glucose noted to be 148. Urinalysis is negative. CT of the brain was obtained which demonstrates no acute findings. Please see radiologist read for full details. My independent interpretation of the chest x-ray is no acute process. EKG is a sinus bradycardia at a rate of 56. CTA of the head and neck was negative for large vessel occlusion aneurysm or AVM. Patient was ambulated. He is unable to stand at the bedside so felt that. He states he just feels very lightheaded when he stands. He is not hypotensive or tachycardic while standing. Manual blood pressure is 155/64. Patient received a dose of his losartan as well as meclizine. History & Record Review Discussion w/independent historian: Patient and Significant other Additional record(s) reviewed:: Prior labs Lab Data Attestation: I reviewed the patient's lab results. Labs: Laboratory Results - last 24 hr 09/25/24 09/25/24 08:22 10:23 WBC 9.3 RBC 4.41 L Hgb 13.8 Hct 41.3 MCV 93.7 MCH 31.3 MCHC 33.4 RDW Std Deviation 44.0 H RDW Coeff of Jordi 12.7 Plt Count 126 L MPV 11.0 Neut % (Auto) Not Reportable Absolute Neuts (auto) 3.7 Absolute Lymphs (auto) 4.90 H Total Counted 100 Neutrophils % (Manual) 39 L Band Neutrophils % 1 Lymphocytes % (Manual) 53 H Monocytes % (Manual) 5 Eosinophils % (Manual) 2 Reactive Lymphocytes 2+ Platelet Estimate SLT DEC RBC Morphology NORM C+C PT 13.2 INR 1.0 APTT 24.6 Sodium 135 Potassium 4.4 Chloride 99 Carbon Dioxide 24.2 Anion Gap 12 BUN 13 Creatinine 1.01 Estim Creat Clear Calc 62.85 Est GFR (MDRD) Non-Af 75 BUN/Creatinine Ratio 12.4 Glucose 148 H Calcium 9.4 Total Bilirubin 0.29 Direct Bilirubin 0.18 AST 17 ALT 12 Alkaline Phosphatase 69 Troponin T High Sens 13 Total Protein 6.9 Albumin 4.3 Globulin 2.6 Urine Color Yellow Urine Clarity Clear Urine pH 8.0 Ur Specific Squire 1.010 Urine Protein 30 H Urine Glucose (UA) Normal Urine Ketones Negative Urine Occult Blood Negative Urine Nitrite Negative Urine Bilirubin Negative Urine Urobilinogen Normal Ur Leukocyte Esterase Negative Urine RBC 0 SEEN Urine WBC 0 SEEN Ur Squamous Epith Cells 0 SEEN Urine Bacteria 0 SEEN Urine Mucus 0 SEEN Radiography Diagnostic Testing: Clinical Impression(s) from Imaging Studies Brain CT 09/25/24 08:10 IMPRESSION: 1. No acute intracranial finding. 2. Findings of chronic microvascular ischemic changes and age-related changes. Reading Location: [facility] Chest X-Ray 09/25/24 08:40 IMPRESSION: No Acute Findings. Reading Location: [facility] Head/Neck CTA 09/25/24 11:32 IMPRESSION: 1. No large vessel occlusion, AVM or aneurysm. 2. 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 3. Stable posttreatment changes of the left neck. Reading Location: [facility] EKG Initial EKG: Attestation: I personally reviewed and interpreted this EKG as follows: Comments: Sinus bradycardia ventricular rate of 56 bpm. Management Discussion w/another healthcare provider: Hospitalist Discharge Plan Dx/Rx/DC Orders Clinical Impression: Hypertension, Light-headedness, Unable to walk Disposition Disposition: Acute Care Hospital [facility]
[2024-09-25] MEDS: Ondansetron 4 MG/2 ML Vial IV (08:26)
--- NOTE | 2024-09-25 08:40 | RAD_ITS ---
PROCEDURE: CHEST 1 VIEW (PORTABLE) 09/25/2024 REASON FOR EXAM: 79-year-old male, hypertension. TECHNIQUE: Frontal view of the chest. COMPARISON: Chest radiograph 08/18/2024. FINDINGS: Hardware: Prior median sternotomy, CABG and probable tricuspid valve revision/replacement. Heart: Cardiac and mediastinal contours are stable. Lungs: No focal consolidation, pleural effusion or pneumothorax. Bones: Degenerative changes are identified within the thoracic spine. RAD/Chest 1 View (Portable) IMPRESSION: No Acute Findings. Reading Location: [id number]
[2024-09-25 08:54] LABS: Prothrombin Time (Protime)PT. 13.2 SECONDS (11.7-14.9)
[2024-09-25 08:55] LABS: Partial Thromboplast Time 24.6 Seconds (24.1-36.2)
[2024-09-25 09:05] LABS: Hematocrit 41.3 % (40-54); Hemoglobin 13.8 g/dL (13.0-16.5); Mean Corp Hgb Conc 33.4 g/dL (32-36); Mean Corpuscular Hgb 31.3 pg (27.0-32.0); Mean Corpuscular Volume 93.7 fL (80-94); POSITIVE COUNT YES; POSITIVE MORPHOLOGY YES; Platelet Count 126 K/mm3 (150-450); RBC Distribution Width CV 12.7 % (11.6-14.6); Red Blood Count 4.41 M/mm3 (4.6-6.2); White Blood Count 9.3 K/mm3 (4.4-11.0)
[2024-09-25 09:09] LABS: Differential Indicated MANUAL DIFF
[2024-09-25 09:30] LABS: Eosinophil 2 % (0-5); Lymphocyte 53 % (19-41); Monocyte 5 % (0-10); Neutrophil-Band 1 % (0-5); Neutrophil-Segmented 39 % (47-70); Total Cells Counted 100 (MANUAL DIFF)
[2024-09-25 09:32] LABS: Absolute Neutrophil Count 3.7 X10^3/uL (2.0-7.7); Platelet Estimate SLT DEC (ADEQ); Red Cell Morphology NORM C+C NORMAL (NORM C&C)
[2024-09-25 09:33] LABS: Reactive Lymphocyte 2+
[2024-09-25 10:10] LABS: AST(SGOT) 17 U/L (<=37); Alanine Aminotransfer ALT/SGPT 12 U/L (<=46); Albumin, Serum 4.3 g/dL (3.4-4.8); Alkaline Phosphatase 69 U/L (40-129); Anion Gap 12 (5-15); BUN 13 mg/dL (4-19); BUN/Creat Ratio 12.4 RATIO (10-20); Bilirubin, Direct 0.18 mg/dL (0.00-0.30); Calcium,Total 9.4 mg/dL (7.6-11.0); Carbon Dioxide 24.2 mmol/L (21.0-32.0); Chloride 99 mmol/L (98-108); Creatinine, Serum 1.01 mg/dL (0.70-1.20); EST Glomerular Filtration Rate 75 (>60); Estimated Creatinine Clearance 62.85 ml/min (50-250); Globulin 2.6 g/dL (2.2-4.2); Glucose 148 mg/dL (70-99); Potassium 4.4 mmol/L (3.3-5.1); Protein, Total 6.9 g/dL (5.9-8.4); Sodium Level 135 mmol/L (133-145); Total Bilirubin 0.29 mg/dL (0.00-1.30); Troponin T High Sensitivity 13 ng/L (<=22)
[2024-09-25 10:26] LABS: Bacteria 0 SEEN /hpf (None Seen); Mucous, Urine 0 SEEN /hpf (<or=2+); Squamous Epithelial Cells - UA 0 SEEN /hpf (0-5); White Blood Cells 0 SEEN /hpf (0-5)
[2024-09-25 10:34] LABS: Color, Urine Yellow (Yellow); Glucose, Dipstick Normal (Normal); Ketone-Dipstick Negative (Negative); Leukocyte Esterase-Dipstick Negative /ul (Negative); Nitrite-Dipstick Negative (Negative); Occult Blood-Urine Negative /ul (Negative); Protein-Dipstick 30 mg/dl (Negative); Urine Bilirubin Dipstick Negative (Negative); Urine Clarity Clear (Clear); Urine Urobilinogen Normal (Normal)
[2024-09-25 10:51] LABS: Red Blood Cells-Urine 0 SEEN /hpf (0-5)
[2024-09-25] MEDS: Ketorolac 15 MG/ML Vial IV (11:02)
--- NOTE | 2024-09-25 11:32 | CT_ITS ---
PROCEDURE: CTA HEAD AND NECK W/ CONTRAST 09/25/2024 REASON FOR EXAM: 79-year-old male, dizziness. TECHNIQUE: CTA imaging of the head and neck from the aortic arch to the skull vertex with intravenous contrast. Coronal and Sagittal reconstruction series were provided. 3D, 3D post processing, 3D reconstructions, Maximum intensity projection (MIPs) Volume rendering and Shaded surface rendering was provided. CONTRAST: Isovue-370 VOLUME: 100mL One or more dose reduction techniques were used (e.g., Automated exposure control, adjustment of the mA and/or kV according to patient size, use of iterative reconstruction technique). RADIATION DOSE SUMMARY: CTDlvol: 40 mGy DLP: 800 mGycm COMPARISON: Same-day CT head. FINDINGS: See same day CT head for discussion of nonvascular findings. Three-vessel aortic arch with minimal calcific plaque. The bilateral vertebral arteries are widely patent. Calcific plaque of the bilateral common carotid, carotid bulbs and cervical internal carotid arteries, with approximately 50% narrowing by NASCET criteria on the right. No significant narrowing on the left by NASCET criteria. Mild calcific plaque of the bilateral carotid siphons without focal stenosis or occlusion. The bilateral anterior, middle and posterior cerebral arteries are widely patent. origin of the bilateral posterior cerebral arteries. The bilateral SCA, AICA and PICA are widely patent. No aneurysm or arteriovenous malformation. Major venous structures: Unremarkable. Other findings: Stable posttreatment changes of the left neck. Stable erosive changes of the right joe mandible, likely from previous infection. Cervical spondylosis. Prior median sternotomy. CT/CTA Head AND Neck W/ Contrast IMPRESSION: 1. No large vessel occlusion, AVM or aneurysm. 2. 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 3. Stable posttreatment changes of the left neck. Reading Location: [id number]
--- NOTE | 2024-09-25 11:33 | HP.PCM.HOS_ITS ---
HPI - General General Date of Admission: 09/25/24 Date of Service: 09/25/24 Chief Complaint: Disequilibrium HPI Narrative AUSTIN POWELL, is a 79 M who presented to the emergency department at [facility] on 09/25/2024 complaining of a feeling of disequilibrium it has been ongoing for the past 3 days. He has a history of vertigo that lasted for less than 24 hours and that sounds more like BPPV. He denies true vertiginous symptoms at this time. He has no other concurrent symptoms. He denies any tingling numbness that is new any weakness in an arm or leg. His family reports his speech has been normal. He states that he definitely pulls to 1 side when he tries to ambulate and has difficulty with mobility due to it. He denies any shortness of breath, fever, chest pain, nasal congestion, headache, nausea, vomiting, diarrhea, constipation and states he was doing well up until 3 days ago. He does feel like he is going to fall over. He also complained that the intensity of light seems to be more vibrant lately but comes and goes as well. Vital signs show temperature of 97.8, heart rate 56, respiratory 16, blood pressure was 170/102, pulse ox was 94% on room air. Orthostatic vitals were negative. His CBC was unremarkable except his differential showed significant lymphocytosis which apparently is new. He had 53% lymphocytes. He also has chronic thrombocytopenia and his platelet count stable. Coags were normal. Chemistry panel was unremarkable other than a glucose of 148. This is nonfasting. Liver functions are normal. Troponin was unremarkable. UA is unremarkable. CT of the brain is unremarkable for acute finding and shows only chronic microvascular changes related to age. Chest x-ray is unremarkable. EKG is sinus rhythm without any ST-T wave changes and no interval abnormalities. CTA of the head neck shows no LVO, AVM or aneurysms, there is approximately 50% stenosis of the right internal carotid artery. COVID/flu/RSV was negative, respiratory viral panel was negative. Given his ongoing vertiginous symptoms in the emergency department request for admission was made. FOR[facility]LY [facility], [facility] Medical History Squamous cell carcinoma of tongue Hx of myocardial infarction Right renal mass Chronic kidney disease, stage 3a Dysphagia Osteoradionecrosis of jaw Sciatica Hypertension Hyperlipidemia Gout Peripheral neuropathy CAD (coronary artery disease) DDD (degenerative disc disease) Obesity Hypothyroid Facial paresthesia Skin cancer Overactive bladder Osteoarthritis COPD (chronic obstructive pulmonary disease) BRADY (obstructive sleep apnea) Diabetes History of abscessed tooth Thrombocytopenia Home Medications ?Medication ?Instructions ?Recorded ?Last Taken ?Type allopurinol 100 mg tablet 100 mg PO QDAY 05/13/24/02/21 History aspirin 81 mg tablet,delayed 81 mg PO QDAY 05/13/24 History release cholecalciferol (vitamin D3) 50 50 mcg PO BID 05/13/24 09/24/24 History mcg (2,000 unit) capsule ferrous sulfate 325 mg (65 mg 325 mg PO QDAY 05/13/24 09/24/24 History iron) tablet (Feosol) levothyroxine 125 mcg capsule 125 mcg PO QDAY 05/13/24 09/24/24 History losartan 25 mg tablet 25 mg PO QDAY 05/13/2409/24 History rosuvastatin 20 mg tablet 20 mg PO QDAY 05/13/2409/24 History albuterol sulfate 90 mcg/actuation 2 puff inhalation Q 6H PRN 05/14/24 Unknown History aerosol inhaler shortness of breath or wheez ing magnesium oxide 800 mg PO BID 06/01/2409/24 History cetirizine 10 mg tablet 10 mg PO QDAY 06/16/2409/24 History chlorhexidine gluconate 0.12 % 15 ml PO BID 06/16/24 0 09/24/24 History mouthwash metformin 500 mg tablet 500 mg PO BID 06/16/2409/24 History multivitamin 1 tab PO QAM 06/16/24 History Allergy/AdvReac Type Severity Reaction Status Date / Time empagliflozin Allergy Intermediate PT UNSURE Verified 09/25/24 07:53 OF REACTION codeine Allergy Upset Verified 09/25/24 07:53 Stomach Penicillins Allergy Anaphylaxis Verified 09/25/24 07:53 adhesive tape AdvReac Hives Verified 09/25/24 07:53 Family History Mother Cancer Father Asthma Grandmother Heart disease Myocardial infarction Sudden cardiac CVA (cerebral vascular accident) Son CVA (cerebral vascular accident) Diabetes Son Schizophrenia Son Osteoarthritis Psoriasis Surgical History History of hernia repair History of cataract extraction Hx of tonsillectomy History of appendectomy Status post double vessel coronary artery bypass (~1989) Social History (Updated 09/25/24 @ 18:[address] Vandana Hannah DO) household members: spouse housing: house current occupational status: retired Smoking Status: Former smoker alcohol intake: current alcohol intake frequency: holidays/special occasions only substance use type: does not use ROS Constitutional Constitutional: Denies anorexia, change in weight, chills, fatigue, fever(s), malaise, night sweats, weakness or other Eyes Eyes: Reports change in vision; Denies blurry vision, change in eye color, discharge from eye(s), double vision, erythema, eye pain, loss of vision or other ENT HEENT: Denies abnormal hearing, dysphagia, ear pain, epistaxis, headache(s), hearing loss, nasal congestion, nasal discharge, post nasal drip, sinus pressure, sore throat or other Cardiovascular Cardiovascular: Denies chest pain, claudication, dyspnea on exertion, edema, lightheadedness, orthopnea, palpitations, paroxysmal nocturnal dyspnea, rapid heart rate, syncope or other Gastrointestinal Gastrointestinal: Denies abdominal pain, coffee ground emesis, constipation, diarrhea, dyspepsia, hematemesis, hematochezia, loose stools, melena, nausea, vomiting or other Genitourinary Genitourinary: Denies burning urination, difficulty urinating, dysuria, hematuria, nocturia, urinary frequency, urinary hesitancy, urinary incontinence, urinary urgency or other Musculoskeletal Musculoskeletal: Denies arthralgias, back pain, joint pain, joint stiffness, joint swelling, myalgias, neck pain or other Neurologic Neurologic: Reports abnormal gait and disequilibrium; Denies abnormal speech, confusion, dizziness, focal weakness, headache(s), numbness, paresthesias, seizure-like activity, seizures, syncope, tingling, tremor(s) or other Psychiatric Psychiatric: Denies anxiety, depression, homicidal ideation, suicidal ideation or other Endocrine Endocrinology: Denies change in body appearance, cold intolerance, excessive sweating, heat intolerance, polydipsia, polyuria or other Hematologic/Lymphatic Hematologic/Lymphatic: Denies anemia, easy bleeding, easy bruising, lymphadenopathy or other Allergic/Immunologic Allergic/Immunologic: Denies rhinitis, hives, eczemia, asthma or other Vital Signs Vital Signs Vital Signs: 09/25/24 07:53 09/25/24 09:52 09/25/24 10:49 Temperature 97.8 F Temperature Source Oral Pulse Rate 56 L 65 Pulse Rate [Sitting (for 1 minute prior to obtaining)] 79 Pulse Rate [Standing (for 1 minute prior to obtaining)] 76 Respiratory Rate 16 17 Blood Pressure 170/102 H Blood Pressure [Lying] 189/101 H Blood Pressure [Sitting (for 1 minute prior to obtaining)] 202/105 H Blood Pressure [Standing (for 1 minute prior to obtaining)] 172/103 H Blood Pressure Mean 124 Blood Pressure Mean [Lying] 130 Blood Pressure Mean [Sitting (for 1 minute prior to obtaining)] 137 Blood Pressure Mean [Standing (for 1 minute prior to obtaining)] 126 Pulse Ox 94 Oxygen Delivery Method Room Air 09/25/24 11:00 Temperature Temperature Source Pulse Rate 65 Pulse Rate [Sitting (for 1 minute prior to obtaining)] Pulse Rate [Standing (for 1 minute prior to obtaining)] Respiratory Rate 18 Blood Pressure 155/64 H Blood Pressure [Lying] Blood Pressure [Sitting (for 1 minute prior to obtaining)] Blood Pressure [Standing (for 1 minute prior to obtaining)] Blood Pressure Mean 94 Blood Pressure Mean [Lying] Blood Pressure Mean [Sitting (for 1 minute prior to obtaining)] Blood Pressure Mean [Standing (for 1 minute prior to obtaining)] Pulse Ox 97 Oxygen Delivery Method Room Air Weight Weight: 97.976 kg Body Mass Index (BMI) 34.8 Results Lab / Micro Data 09/25/24 08:22 09/25/24 08:22 Labs: Laboratory Results - last 24 hr 09/25/24 08:22: WBC 9.3, RBC 4.41 L, Hgb 13.8, Hct 41.3, MCV 93.7, MCH 31.3, MCHC 33.4, RDW Std Deviation 44.0 H, RDW Coeff of Jordi 12.7, Plt Count 126 L, MPV 11.0, Neut % (Auto) Not Reportable, Absolute Neuts (auto) 3.7, Absolute Lymphs (auto) 4.90 H, Total Counted 100, Neutrophils % (Manual) 39 L, Band Neutrophils % 1, Lymphocytes % (Manual) 53 H, Monocytes % (Manual) 5, Eosinophils % (Manual) 2, Reactive Lymphocytes 2+, Platelet Estimate SLT DEC, RBC Morphology NORM C+C, PT 13.2, INR 1.0, APTT 24.6, Sodium 135, Potassium 4.4, Chloride 99, Carbon Dioxide 24.2, Anion Gap 12, BUN 13, Creatinine 1.01, Estim Creat Clear Calc 62.85, Est GFR (MDRD) Non-Af 75, BUN/Creatinine Ratio 12.4, Glucose 148 H, Calcium 9.4, Total Bilirubin 0.29, Direct Bilirubin 0.18, AST 17, ALT 12, Alkaline Phosphatase 69, Troponin T High Sens 13, Total Protein 6.9, Albumin 4.3, Globulin 2.6 09/25/24 10:23: Urine Color Yellow, Urine Clarity Clear, Urine pH 8.0, Ur Specific [place] 1.010, Urine Protein 30 H, Urine Glucose (UA) Normal, Urine Ketones Negative, Urine Occult Blood Negative, Urine Nitrite Negative, Urine Bilirubin Negative, Urine Urobilinogen Normal, Ur Leukocyte Esterase Negative, Urine RBC 0 SEEN, Urine WBC 0 SEEN, Ur Squamous Epith Cells 0 SEEN, Urine Bacteria 0 SEEN, Urine Mucus 0 SEEN Imaging Radiology Impression Brain CT 09/25/24 08:10 IMPRESSION: 1. No acute intracranial finding. 2. Findings of chronic microvascular ischemic changes and age-related changes. Reading Location: [facility] Chest X-Ray 09/25/24 08:40 IMPRESSION: No Acute Findings. Reading Location: [facility] Assessment & Plan Assessment/Plan (1) Disequilibrium: (2) Gait disturbance: (3) Lymphocytosis: PLAN: Plan Disequilibrium -Etiology is unclear -Orthostatic vitals are negative -Need to consider labyrinthitis so we will start prednisone 50 mg daily x 5 days and see if he clinically improves -Did have significant lymphocytosis however viral panels were negative -Check MRI with and without contrast of the brain -Low concern for stroke Carotid artery stenosis right -Approximately 50% on CTA of the head next -Patient is already on goal-directed therapy with rosuvastatin and aspirin -Continue outpatient follow-up Leukocytosis -Etiology is unclear -Will repeat differential in the morning CAD/essential hypertension/hyperlipidemia -Patient with previous coronary artery bypass surgery -On goal-directed medical therapy appropriately -Continue statin -Continue baby aspirin -Continue losartan DM-2 -Hold home metformin -SSI -Accu-Cheks as ordered -Cardiac/carb controlled diet History of gout -Continue home allopurinol Chronic thrombocytopenia -Counts are stable -No other cytopenias present -Follows with oncology and current plan is for watchful waiting BRADY -Patient noncompliant with PAP therapy -As needed nocturnal oxygen History of osteonecrosis of the jaw -Remote next-continue outpatient follow-up Obesity -BMI 33.8 -Complicates treatment, prognosis, outcomes -Recommend weight loss DVT prophylaxis -Subcu Lovenox 40 daily CODE STATUS -Full code as verified at the time of admission Charges/Coding Visit Charges Inpatient E&M: 41200 Init Hosp L2
[2024-09-25] MEDS: Losartan Potassium 25 MG Tablet PO (11:47)
[2024-09-25] MEDS: Meclizine HCl 25 MG Tablet PO (11:47)
[2024-09-25] MEDS: predniSONE 20 MG Tablet 50 MG PO (16:19)
[2024-09-25] MEDS: Loratadine 10 MG Tablet PO (16:20)
[2024-09-25] MEDS: Allopurinol 100 MG Tablet PO (16:21)
[2024-09-25] MEDS: Insulin Lispro 100 UNIT/ML INSULN.PEN SC (20:40)
[2024-09-25] MEDS: Magnesium Chloride 64 MG Delay Rel.Tablet 128 MG PO (20:42)
[2024-09-25] MEDS: Chlorhexidine 480 ML 15 ML PO (20:42)
[2024-09-25] MEDS: Atorvastatin Calcium 40 MG Tablet PO (20:42)
[2024-09-25] MEDS: Cholecalciferol (VIT D3) 25 MCG TABLET (1,000 UNITS) 50 MCG PO (20:43)
[2024-09-25 20:50] LABS: Bedside Glucose 168 mg/dL (74-106)
[2024-09-26] MEDS: Levothyroxine 125 MCG Tablet PO (06:00)
[2024-09-26 07:13] LABS: Absolute Neutrophil Count 4.8 X10^3/uL (2.0-7.7); Basophil# 0.04 X10^3/uL; Basophil% 0.5 % (0-1); Hemoglobin 13.5 g/dL (13.0-16.5); Lymphocyte % 30.2 % (19-41); Mean Corp Hgb Conc 33.8 g/dL (32-36); Mean Corpuscular Hgb 31.5 pg (27.0-32.0); Mean Corpuscular Volume 93.2 fL (80-94); Mean Platelet Vol. 11.2 fl (6.2-12.0); Monocyte# 0.73 X10^3/uL; Monocyte% 8.5 % (0-10); NRBC Flagged by Analyzer 0 % (0-5); Neutrophil # 4.84 X10^3/uL (2.7-7.7); Neutrophil % 56.3 % (47-70); Platelet Count 129 K/mm3 (150-450); RBC Distribution Width CV 12.6 % (11.6-14.6); RBC Distribution Width SD 42.9 fl (35.1-43.9); Red Blood Count 4.29 M/mm3 (4.6-6.2); White Blood Count 8.6 K/mm3 (4.4-11.0)
[2024-09-26 07:46] LABS: ALB/GLOB Ratio 1.7 RATIO (0.9-2.4); AST(SGOT) 16 U/L (<=37); Alanine Aminotransfer ALT/SGPT 10 U/L (<=46); Albumin, Serum 4.1 g/dL (3.4-4.8); Alkaline Phosphatase 67 U/L (40-129); Anion Gap 13 (5-15); BUN 21 mg/dL (4-19); BUN/Creat Ratio 16.2 RATIO (10-20); Calcium,Total 9.5 mg/dL (7.6-11.0); Carbon Dioxide 21.7 mmol/L (21.0-32.0); Chloride 95 mmol/L (98-108); Creatinine, Serum 1.27 mg/dL (0.70-1.20); EST Glomerular Filtration Rate 57 (>60); Estimated Creatinine Clearance 50.88 ml/min (50-250); Globulin 2.5 g/dL (2.2-4.2); Glucose 148 mg/dL (70-99); Phosphorus 4.2 mg/dL (2.7-4.5); Potassium 5.2 mmol/L (3.3-5.1); Protein, Total 6.6 g/dL (5.9-8.4); Sodium Level 130 mmol/L (133-145); Thyroid Stim Hormone (TSH) 0.212 uIU/mL (0.300-4.200); Total Bilirubin 0.49 mg/dL (0.00-1.30)
--- NOTE | 2024-09-26 08:43 | PCM.PN.HOSP ---
Reason for Visit Reason for Visit: Disequilibrium/unsteady gait Subjective Subjective The patient states he said no episodes today as of yet. He did get up and move with physical therapy and felt while doing so. He did quite well and I was able to witness him walking around the hallway with standby assist. He was upset that his diet was cardiac/carb controlled. He states he is regular diet at home and would like to do so here. I did assure him we would transition his diet. He was also concerned that his magnesium was not the same as he has at home. I assured him that when he went home he would be back on his home magnesium dose and type. Objective Data Objective Data Vital Signs: Vital Signs Temp Pulse Resp BP Pulse Ox O2 Del Method O2 Flow Rate 98.0 F 66 18 162/85 H 93 Room Air 2 09/25/24 14:29 09/25/24 14:29 09/25/24 14:29 09/25/24 17:40 09/25/24 20:05 09/25/24 22:00 09/25/24 20:05 Oxygen Flow Rate (L/min) 2 Oxygen Delivery Method Room Air Weight: 97.976 kg Body Mass Index (BMI) 33.8 Intake & Output: Intake and Output for Last 24 Hours 09/24/24 09/25/24 09/26/24 23:59 23:59 23:59 Intake Total 450 / 450 Output Total 200 / 200 Balance 250 / 250 Lab / Micro Data 09/26/24 04:42 09/26/24 09:46 Labs: Laboratory Results - last 24 hr 09/25/24 08:22: WBC 9.3, RBC 4.41 L, Hgb 13.8, Hct 41.3, MCV 93.7, MCH 31.3, MCHC 33.4, RDW Std Deviation 44.0 H, RDW Coeff of Jordi 12.7, Plt Count 126 L, MPV 11.0, Neut % (Auto) Not Reportable, Absolute Neuts (auto) 3.7, Absolute Lymphs (auto) 4.90 H, Total Counted 100, Neutrophils % (Manual) 39 L, Band Neutrophils % 1, Lymphocytes % (Manual) 53 H, Monocytes % (Manual) 5, Eosinophils % (Manual) 2, Reactive Lymphocytes 2+, Platelet Estimate SLT DEC, RBC Morphology NORM C+C, PT 13.2, INR 1.0, APTT 24.6, Sodium 135, Potassium 4.4, Chloride 99, Carbon Dioxide 24.2, Anion Gap 12, BUN 13, Creatinine 1.01, Estim Creat Clear Calc 62.85, Est GFR (MDRD) Non-Af 75, BUN/Creatinine Ratio 12.4, Glucose 148 H, Calcium 9.4, Total Bilirubin 0.29, Direct Bilirubin 0.18, AST 17, ALT 12, Alkaline Phosphatase 69, Troponin T High Sens 13, Total Protein 6.9, Albumin 4.3, Globulin 2.6 09/25/24 10:23: Urine Color Yellow, Urine Clarity Clear, Urine pH 8.0, Ur Specific [place] 1.010, Urine Protein 30 H, Urine Glucose (UA) Normal, Urine Ketones Negative, Urine Occult Blood Negative, Urine Nitrite Negative, Urine Bilirubin Negative, Urine Urobilinogen Normal, Ur Leukocyte Esterase Negative, Urine RBC 0 SEEN, Urine WBC 0 SEEN, Ur Squamous Epith Cells 0 SEEN, Urine Bacteria 0 SEEN, Urine Mucus 0 SEEN 09/25/24 20:30: POC Glucose 168 H 09/26/24 04:42: WBC 8.6, RBC 4.29 L, Hgb 13.5, Hct 40.0, MCV 93.2, MCH 31.5, MCHC 33.8, RDW Std Deviation 42.9, RDW Coeff of Jordi 12.6, Plt Count 129 L, MPV 11.2, Immature Gran % (Auto) 4.500 H, Neut % (Auto) 56.3, Lymph % (Auto) 30.2, Petroleum % (Auto) 8.5, Eos % (Auto) 0.0, Baso % (Auto) 0.5, Absolute Neuts (auto) 4.8, Absolute Lymphs (auto) 2.60, Nucleated RBC % 0, Sodium 130 L, Potassium 5.2 H, Chloride 95 L, Carbon Dioxide 21.7, Anion Gap 13, BUN 21 H, Creatinine 1.27 H, Estim Creat Clear Calc 50.88, Est GFR (MDRD) Non-Af 57 L, BUN/Creatinine Ratio 16.2, Glucose 148 H, Calcium 9.5, Phosphorus 4.2, Magnesium 2.0, Total Bilirubin 0.49, AST 16, ALT 10, Alkaline Phosphatase 67, Total Protein 6.6, Albumin 4.1, Globulin 2.5, Albumin/Globulin Ratio 1.7, TSH 0.212 L Micro: Microbiology 09/25/24 12:20 Mucosa - Nasopharyngeal Respiratory Panel (PCR) - Final 09/25/24 12:20 Mucosa - Nasopharyngeal Coronavirus COVID-19 PCR - Final Radiography Diagnostic Testing: Radiology Impression Brain CT 09/25/24 08:10 IMPRESSION: 1. No acute intracranial finding. 2. Findings of chronic microvascular ischemic changes and age-related changes. Reading Location: [facility] Chest X-Ray 09/25/24 08:40 IMPRESSION: No Acute Findings. Reading Location: [facility] Head/Neck CTA 09/25/24 11:32 IMPRESSION: 1. No large vessel occlusion, AVM or aneurysm. 2. 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 3. Stable posttreatment changes of the left neck. Reading Location: [facility] Physical Exam Const alert, oriented x3, no apparent distress and well nourished; Negative for average body habitus Constitutional Narrative: Obese, elderly, white male, sitting up in a chair at the bedside after returning from his walk with physical therapy, appears comfortable, nontoxic HEENT head/scalp atraumatic and oropharynx normal Head and Scalp: normocephalic Resp normal respiratory effort, no retractions, no use of accessory muscles and clear to auscultation bilaterally Auscultation: Negative for rales, rhonchi or wheezes Cardio regular rate, regular rhythm, S1 normal heart sound, S2 normal heart sound, no murmurs, no gallops and no clicks GI normal to inspection, nondistended, normoactive bowel sounds, soft to palpation and non-tender Extremity no clubbing, cyanosis or edema Extremity Narrative: Pedal and radial pulses are 2+ Neuro oriented x3, moves all extremities and no focal motor deficits Neuro Narrative: Observed gait walking with physical therapy today and no significant gait disturbances at this time Speech: speech normal Psych affect normal Psych Narrative: Pleasant, interacts appropriately Assessment & Plan Assessment/Plan (1) Disequilibrium: (2) Gait disturbance: (3) Lymphocytosis: PLAN: Plan Disequilibrium -Etiology is unclear but seems to be better today -Orthostatic vitals are negative -Continue prednisone 50 mg day 2 of 5 and then would need a brief taper at discharge for possible viral labyrinthitis -Seems to be better clinically after starting this -MRI of the brain with and without contrast pending for tomorrow -Low concern for stroke Carotid artery stenosis right -Approximately 50% on CTA of the head next -Patient is already on goal-directed therapy with rosuvastatin and aspirin -Continue outpatient follow-up Leukocytosis -Resolved and lymphocytosis is resolved Hyperkalemia -Suspect hemolyzed -Repeat normalized CAD/essential hypertension/hyperlipidemia -Patient with previous coronary artery bypass surgery -On goal-directed medical therapy appropriately -Continue statin -Continue baby aspirin -Continue losartan DM-2 -Hold home metformin -SSI -Accu-Cheks as ordered -Patient refused cardiac/carb controlled diet so changed to regular--> states he does not follow this at home History of gout -Continue home allopurinol Chronic thrombocytopenia -Counts are stable -No other cytopenias present -Follows with oncology and current plan is for watchful waiting Chronic hyponatremia -Stable BRADY -Patient noncompliant with PAP therapy -As needed nocturnal oxygen History of osteonecrosis of the jaw -Remote next-continue outpatient follow-up Obesity -BMI 33.8 -Complicates treatment, prognosis, outcomes -Recommend weight loss DVT prophylaxis -Subcu Lovenox 40 daily CODE STATUS -Full code as verified at the time of admission Charges/Coding Visit Charges Inpatient E&M: 52144 Subs Hosp L2
[2024-09-26 09:00] VITALS: BP 120/86; PULSE 78; RESP 18; TEMP 36.6; O2SAT 100
[2024-09-26] MEDS: predniSONE 20 MG Tablet 50 MG PO (09:12)
[2024-09-26] MEDS: Multivitamins,Therapeutic Tablet 1 TABLET PO (09:12)
[2024-09-26] MEDS: Cholecalciferol (VIT D3) 25 MCG TABLET (1,000 UNITS) 50 MCG PO ×2 (09:12→21:25)
[2024-09-26] MEDS: Aspirin E.C. 81 MG Tablet PO (09:12)
[2024-09-26] MEDS: Loratadine 10 MG Tablet PO (09:12)
[2024-09-26] MEDS: Magnesium Chloride 64 MG Delay Rel.Tablet 128 MG PO ×2 (09:12→21:26)
[2024-09-26] MEDS: Losartan Potassium 25 MG Tablet PO (09:12)
[2024-09-26] MEDS: Ferrous Sulfate 325 MG Tablet PO (09:12)
[2024-09-26] MEDS: Allopurinol 100 MG Tablet PO (09:12)
[2024-09-26 10:20] LABS: Anion Gap 12 (5-15); BUN 22 mg/dL (4-19); Calcium,Total 9.7 mg/dL (7.6-11.0); Carbon Dioxide 24.4 mmol/L (21.0-32.0); Chloride 94 mmol/L (98-108); EST Glomerular Filtration Rate 61 (>60); Estimated Creatinine Clearance 53.84 ml/min (50-250); Glucose 164 mg/dL (70-99); Potassium 4.7 mmol/L (3.3-5.1); Sodium Level 131 mmol/L (133-145)
[2024-09-26] MEDS: Acetaminophen 325 MG Tablet 650 MG PO (10:33)
[2024-09-26 10:35] LABS: Bedside Glucose 133 mg/dL (74-106)
[2024-09-26 11:10] VITALS: O2SAT 92
[2024-09-26 11:58] LABS: Bedside Glucose 141 mg/dL (74-106)
--- NOTE | 2024-09-26 13:25 | MRI_ITS ---
PROCEDURE: BRAIN W/WO CONTRAST 09/26/2024 REASON FOR EXAM: VERTIGO TECHNIQUE: Brain MRI without and with intravenous contrast with additional dedicated imaging of the IACs. CONTRAST: 20 mL Clariscan FINDINGS: Brain: No mass, mass effect or midline shift. No intra-axial or extra-axial hemorrhage. No cerebellar pontine angle mass. Periventricular and deep white matter T2/FLAIR hyperintense signal suggests moderate chronic microangiopathy, an age-related phenomenon Diffusion weighted images: No restricted diffusion Ventricles: Ventricles and sulci are quite prominent indicating moderate age- related involution Major Intracranial Vessels: Vertebrobasilar and anterior circulation flow voids are identified Sinuses: No significant sinus disease. Mastoids: No mastoid air cell effusions. IACs: Cranial Nerves VII and VIII are identified and unremarkable. Internal auditory canals are symmetric and unremarkable. Cochlea, Vestibule and Semicircular Canals: Unremarkable Middle Ear Cavities: Unremarkable MRI/Brain W/WO Contrast IMPRESSION: No acute process detected. No evidence of cerebellar pontine angle mass Age-related findings as above. Reading [facility]
[2024-09-26 14:11] VITALS: BP 142/72; PULSE 66; RESP 15; TEMP 36.7; O2SAT 97
[2024-09-26] MEDS: Insulin Lispro 100 UNIT/ML INSULN.PEN SC ×2 (17:08→21:25)
[2024-09-26 17:19] LABS: Bedside Glucose 176 mg/dL (74-106)
[2024-09-26 21:22] VITALS: BP 122/82; PULSE 60; RESP 16; TEMP 36.7; O2SAT 99
[2024-09-26] MEDS: Atorvastatin Calcium 40 MG Tablet PO (21:25)
[2024-09-26] MEDS: Chlorhexidine 480 ML 15 ML PO (21:26)
[2024-09-26 22:15] LABS: Bedside Glucose 187 mg/dL (74-106)
[2024-09-27 03:25] VITALS: BP 148/98; PULSE 58; RESP 16; TEMP 36.4; O2SAT 98
[2024-09-27] MEDS: Levothyroxine 125 MCG Tablet PO (06:27)
[2024-09-27 06:51] LABS: Bedside Glucose 106 mg/dL (74-106)
[2024-09-27 08:05] VITALS: O2SAT 93
[2024-09-27 09:25] VITALS: BP 132/88; PULSE 56; RESP 17; TEMP 36.4; O2SAT 98
[2024-09-27 09:28] VITALS: BMI 33.3
[2024-09-27] MEDS: 0.9% Saline Lock 10 ML Syringe IV (09:32)
[2024-09-27] MEDS: Ondansetron 4 MG/2 ML Vial IV (09:32)
[2024-09-27] MEDS: Aspirin E.C. 81 MG Tablet PO (09:39)
[2024-09-27] MEDS: Multivitamins,Therapeutic Tablet 1 TABLET PO (09:39)
[2024-09-27] MEDS: Cholecalciferol (VIT D3) 25 MCG TABLET (1,000 UNITS) 50 MCG PO (09:40)
[2024-09-27] MEDS: Loratadine 10 MG Tablet PO (09:40)
[2024-09-27] MEDS: Losartan Potassium 25 MG Tablet PO (09:40)
[2024-09-27] MEDS: predniSONE 20 MG Tablet 50 MG PO (09:40)
[2024-09-27] MEDS: Magnesium Chloride 64 MG Delay Rel.Tablet 128 MG PO (09:40)
[2024-09-27] MEDS: Allopurinol 100 MG Tablet PO (09:40)
[2024-09-27] MEDS: Enoxaparin 40 MG/0.4 ML Syringe SC (09:41)
--- NOTE | 2024-09-27 10:50 | CASEMGMT ---
Addendum entered by Mar Liang 09/27/24 15:24: SHAHLA BETANCOURT received script for outpatient vestibular therapy. SHAHLA BETANCOURT in to discuss needs at discharge. Patient states he would like referral for vestibular therapy sent to [facility]. SHAHLA BETANCOURT faxed referral to [facility] with request to call patient to schedule. SHAHLA BETANCOURT provided script in discharge packet with [facility] information. Original Note: SHAHLA BETANCOURT in to complete [employer] form with patient, at bedside. RN ASIA explained [employer] Form to patient, patient voiced understanding. Patient signed [employer] Form and filed in chart. Patient provided with copy of signed [employer] form. voiced concern that patient is complaining of dizziness again. SHAHLA BETANCOURT noted progress with therapy SBA 250ft+. Patient states that his dizziness came on suddenly when reaching for glass of water. Patient compared dizziness to when he previously had vertigo. SHAHLA BETANCOURT updated patient and that PT would be notified and asked to re eval for vertigo. SHAHLA BETANCOURT updated PT and will see patient. CM will continue to follow this patient and plan for a safe discharge.
[2024-09-27 11:57] LABS: Bedside Glucose 161 mg/dL (74-106)
--- NOTE | 2024-09-27 12:16 | PCM.DC.SUM ---
Providers Date of Admission: 09/25/24 Date of Discharge: 09/27/24 Primary Care Physician: Dr. Candace Nino MD Reason For Visit: DIZZINESS Diagnosis Discharge Diagnosis (1) Disequilibrium: Status: Acute Code(s): R42 - Dizziness and giddiness (2) Gait disturbance: Status: Acute Code(s): R26.9 - Unspecified abnormalities of gait and mobility (3) Lymphocytosis: Status: Acute Code(s): D72.820 - Lymphocytosis (symptomatic) Medications at Discharge Home Medications allopurinol 100 mg tablet 100 mg PO QDAY 05/13/24 aspirin 81 mg tablet,delayed release 81 mg PO QDAY 05/13/24 cholecalciferol (vitamin D3) 50 mcg (2,000 unit) capsule 50 mcg PO BID 05/13/24 ferrous sulfate 325 mg (65 mg iron) tablet (Feosol) 325 mg PO QDAY 05/13/24 levothyroxine 125 mcg capsule 125 mcg PO QDAY 05/13/24 losartan 25 mg tablet 25 mg PO QDAY 05/13/24 rosuvastatin 20 mg tablet 20 mg PO QDAY 05/13/24 albuterol sulfate 90 mcg/actuation aerosol inhaler 2 puff inhalation Q6H PRN shortness of breath or wheezing 05/14/24 magnesium oxide 800 mg PO BID 06/01/24 cetirizine 10 mg tablet 10 mg PO QDAY 06/16/24 chlorhexidine gluconate 0.12 % mouthwash 15 ml PO BID 06/16/24 metformin 500 mg tablet 500 mg PO BID 06/16/24 multivitamin 1 tab PO QAM 06/16/24 meclizine 25 mg tablet 25 mg PO TID PRN dizziness 5 days #15 tabs 09/27/24 prednisone 20 mg tablet 50 mg (2.5 x 20 mg) PO DAILYCM 2 days #5 tabs 09/27/24 Hospital Course Operations None Procedures EKG and - (CT brain, CTA head/neck, MRI brain, chest x-ray) Summary of Care Provided Minutes Spent on Discharge: 35 Hospital Course: Patient is an 79-year-old male who presented to [facility] ED on 09/25/2024 with dizziness. Hospital course as noted below. Patient discharged home in stable condition on 09/28. 1. Disequilibrium ? Etiology unclear but most likely diagnosis seems to be viral labyrinthitis. CT brain, CTA head/neck and MRI brain essentially unremarkable. Orthostatic vitals negative. Improved while inpatient on prednisone and meclizine as needed. Will treat with prednisone 50 mg x 5 days total and meclizine 25 mg as needed. PT/OT/case management followed and patient did well; vestibular PT prescribed on discharge. 2. Right carotid artery stenosis ? CTA head/neck showed approximately 50% stenosis of the right carotid artery, otherwise no significant stenoses noted. Already on goal-directed therapy with rosuvastatin and aspirin, will continue these. Outpatient follow-up. 3. Hyperkalemia ? Suspect due to hemolyzed sample and repeat BMP showed normalized potassium level. Chronic medical conditions: ? Class I obesity: BMI 33 on admit. Complicated hospital course, care and prognosis. Recommend weight loss. ? History of CAD with CABG, hypertension, hyperlipidemia: Continue home baby aspirin, statin and losartan. ? Type 2 diabetes mellitus: Treated with sliding scale insulin with meals while inpatient. Okay to resume home metformin on discharge. ? Gout: Continue home allopurinol. ? Chronic thrombocytopenia: Platelet count stable at baseline around 130. Continue outpatient follow-up. ? Chronic hyponatremia: Sodium level stable in low 130s. Outpatient follow-up. ? BRADY: Noncompliant with PAP therapy. Treated with as needed nocturnal oxygen while inpatient. ? History of osteonecrosis of the jaw: Remote, continue outpatient follow-up. Total clinical time spent by myself addressing the patient's medical issues, reviewing all the data, and collaborating with patient's care team: 35 minutes. Physical Exam Const alert, oriented x3, no apparent distress and well nourished; Negative for average body habitus Constitutional Narrative: Obese, elderly, white male, sitting up in a chair at the bedside, appears comfortable, nontoxic HEENT head/scalp atraumatic and oropharynx normal Head and Scalp: normocephalic Resp normal respiratory effort, no retractions, no use of accessory muscles and clear to auscultation bilaterally Auscultation: Negative for rales, rhonchi or wheezes Cardio regular rate, regular rhythm, S1 normal heart sound, S2 normal heart sound, no murmurs, no gallops and no clicks GI normal to inspection, nondistended, normoactive bowel sounds, soft to palpation and non-tender Extremity no clubbing, cyanosis or edema Extremity Narrative: Pedal and radial pulses are 2+ Neuro oriented x3, moves all extremities and no focal motor deficits Speech: speech normal Psych affect normal Psych Narrative: Pleasant, interacts appropriately Weight / BMI Weight Weight: 96.5 kg Body Mass Index (BMI) 33.3 ABG / Lab / Microbiology Data 09/26/24 04:42 09/26/24 09:46 Laboratory: Laboratory Results - last 24 hr 09/27/24 11:36: POC Glucose 161 H Microbiology: Microbiology 09/25/24 12:20 Mucosa - Nasopharyngeal Respiratory Panel (PCR) - Final 09/25/24 12:20 Mucosa - Nasopharyngeal Coronavirus COVID-19 PCR - Final Radiography Diagnostic Testing: Radiology Impression Brain MRI 09/26/24 13:25 IMPRESSION: No acute process detected. No evidence of cerebellar pontine angle mass Age-related findings as above. [facility] Instructions DC O2, CPAP, BIPAP Needs Home O2 Discharge instructions: No Meaningful Use Info Meaningful Use Meaningful Use Diagnoses (Choose all that apply): None applicable Ischemic Stroke Statin Dosing Therapy Reference: STATIN DOSE THERAPY REFERENCE: * Patients > 75 years receive moderate or high dose statin therapy. * Patients 75 years or YOUNGER should receive HIGH intensity statin dose unless contraindicated. You will be required to document reason for non-treatment if statin daily dose does not meet guidelines. HIGH DOSE STATIN THERAPY DAILY Atorvastatin > than or = to 40 mg Rosuvastatin > than or = to 20 mg Amlodipine + Atorvastatin > than or = to 2.5/40 mg Ezetimibe + Simvastatin 10/80 mg Simvastatin 80mg Discharge Plan Admission Admit Date/Time: 09/25/24 13:11 Primary Reason for Your Visit: dizziness Attending Provider: Toby Larsen Primary Care Provider: Candace Nino Consulting Providers: Vandana Hannah Discharge Orders/Prescriptions Prescriptions: New prednisone 20 mg Tablet 50 mg PO DAILYCM 2 Days Qty: 5 0RF meclizine 25 mg tablet 25 mg PO TID PRN (Reason: dizziness) 5 Days Qty: 15 0RF Continued albuterol sulfate 90 mcg/actuation HFA aerosol inhaler 2 puff inhalation Q6H PRN (Reason: shortness of breath or wheezing) multivitamin Tablet 1 tab PO QAM chlorhexidine gluconate 0.12 % mouthwash 15 ml PO BID rosuvastatin 20 mg tablet 20 mg PO QDAY allopurinol 100 mg tablet 100 mg PO QDAY losartan 25 mg tablet 25 mg PO QDAY levothyroxine 125 mcg capsule 125 mcg PO QDAY cholecalciferol (vitamin D3) 50 mcg (2,000 unit) capsule 50 mcg PO BID aspirin 81 mg tablet,delayed release (DR/EC) 81 mg PO QDAY ferrous sulfate [Feosol] 325 mg (65 mg iron) tablet 325 mg PO QDAY magnesium oxide 400 mg magnesium capsule 800 mg PO BID metformin 500 mg tablet 500 mg PO BID cetirizine 10 mg tablet 10 mg PO QDAY Referrals / Follow Up: Candace Nino MD [Primary Care Provider] - Disposition Disposition (needs filled in before D/C Order can be placed): Home, Self Care Charges/Coding Visit Charges Inpatient E&M: 70763 Disch Hosp >30min
[2024-09-27] MEDS: Meclizine HCl 25 MG Tablet PO (12:45)
[2024-09-27] MEDS: Ferrous Sulfate 325 MG Tablet PO (12:46)
[2024-09-27] MEDS: Acetaminophen 325 MG Tablet 650 MG PO (12:46)
--- NOTE | 2024-09-27 14:37 | CHAPLAIN ---
Type of Pastoral Visit _x__ Initial Visit ___ Follow-up Visit ___ On-call Visit ___ General Patient Visit ___ Spiritual Assessment ___ Family Conference ___ Bereavement ___ Rapid Response ___ Code Blue ___ Other (describe below) Pastoral Care Referral From _xx__ Patient ___ Family ___ Nurse ___ Physician ___ Electrophysiology Nurse Practitioner ___ Incendiaries Supervisor ___ Other (describe below) Sacrament/Intervention _x__ Active listening ___ Anointing ___ Confucianism ___ Bereavement ___ Communion _x__ Rossana exploration ___ _x__ Life review _x__ Prayer ___ Reconciliation ___ Sacrament of Sick _x__ Supportive presence ___ Wedding ___ Other (describe below) Pastoral Comments patient had good stories to tell about his life; pt identifies as a Methodist and belongs to God; pt has had many surgeries and knows how to expect things in the hospital; pt is retired and is given thanks 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
[2024-09-27 15:27] VITALS: BP 124/74; PULSE 59; RESP 17; TEMP 36.6; O2SAT 98
--- NOTE | 2024-09-27 16:22 | PHA.DC.MC.R ---
Pharmacy [facility] Pharmacy Service has performed discharge medication reconciliation and counseling for this patient. The patient's discharge medication list was reviewed for discrepancies and discrepancies were resolved. The patient was counseled on the following discharge medications and changes in medications for homegoing were reviewed. The Reason for Use, instructions for use, and potential side effects were reviewed for all new medications. The patient's questions regarding all of their medications were answered. 1. Prednisone 50 mg PO daily 2. Meclizine 25 mg PO TID PRN dizziness The patient was able to verbally demonstrate an understanding of their discharge medications. Medications at Discharge Home Medications allopurinol 100 mg tablet 100 mg PO QDAY 05/13/24 aspirin 81 mg tablet,delayed release 81 mg PO QDAY 05/13/24 cholecalciferol (vitamin D3) 50 mcg (2,000 unit) capsule 50 mcg PO BID 05/13/24 ferrous sulfate 325 mg (65 mg iron) tablet (Feosol) 325 mg PO QDAY 05/13/24 levothyroxine 125 mcg capsule 125 mcg PO QDAY 05/13/24 losartan 25 mg tablet 25 mg PO QDAY 05/13/24 rosuvastatin 20 mg tablet 20 mg PO QDAY 05/13/24 albuterol sulfate 90 mcg/actuation aerosol inhaler 2 puff inhalation Q6H PRN shortness of breath or wheezing 05/14/24 magnesium oxide 800 mg PO BID 06/01/24 cetirizine 10 mg tablet 10 mg PO QDAY 06/16/24 chlorhexidine gluconate 0.12 % mouthwash 15 ml PO BID 06/16/24 metformin 500 mg tablet 500 mg PO BID 06/16/24 multivitamin 1 tab PO QAM 06/16/24 meclizine 25 mg tablet 25 mg PO TID PRN dizziness 5 days #15 tabs 09/27/24 prednisone 20 mg tablet 50 mg (2.5 x 20 mg) PO DAILYCM 2 days #5 tabs 09/27/24
== END 2024-09-27 15:44 | disposition home or self-care (01) ==
LOC: ED 13:19 → PCU 13:31
PROVIDERS: Admitting Provider Internal Medicine; Emergency Provider Emergency Medicine; PCP Internal Medicine; Visit Provider Hospitalist
DX: R42 Dizziness and giddiness (principal); J44.9 Chronic obstructive pulmonary disease, unspecified; E11.22 Type 2 diabetes mellitus with diabetic chronic kidney disease; E11.42 Type 2 diabetes mellitus with diabetic polyneuropathy; N18.31 Chronic kidney disease, stage 3a; I65.21 Occlusion and stenosis of right carotid artery; G47.33 Obstructive sleep apnea (adult) (pediatric); R26.9 Unspecified abnormalities of gait and mobility; I25.10 Atherosclerotic heart disease of native coronary artery without angina pectoris; E78.5 Hyperlipidemia, unspecified; D72.820 Lymphocytosis (symptomatic); I12.9 Hypertensive chronic kidney disease with stage 1 through stage 4 chronic kidney disease, or unspecified chronic kidney disease; M10.9 Gout, unspecified; D69.6 Thrombocytopenia, unspecified; E87.1 Hypo-osmolality and hyponatremia; E66.811 Obesity, class 1; Z79.82 Long term (current) use of aspirin; Z11.52 Encounter for screening for COVID-19; Z68.33 Body mass index [BMI] 33.0-33.9, adult; Z91.199 Patient's noncompliance with other medical treatment and regimen due to unspecified reason; Z79.84 Long term (current) use of oral hypoglycemic drugs; Z79.890 Hormone replacement therapy; Z79.899 Other long term (current) drug therapy; Z87.891 Personal history of nicotine dependence; Z95.1 Presence of aortocoronary bypass graft
CPT/HCPCS: 36415; 70450; 70496; 70498; 70553; 71045; 80048; 80053; 80076; 81001; 82962; 83735; 84100; 84443; 84484; 85025; 85610; 85730; 87633; 87635; 93005; 94668; 96372; 96374; 96375; 96376; 97161; 97165; 99221; 99285; A9575; Q9967; A4216; G0378; J2405

== ENCOUNTER → 2024-09-30 | Outpatient (CLI) | payer MEDICARE, OTHER, SELFPAY ==
--- NOTE | 2024-09-30 07:09 | ECHOD_ITS ---
Reason For Study Reason For Study: Pre Op Procedure This was a 2D Doppler, Color Flow transthoracic echocardiogram. Exam performed in department. Left Ventricle Normal LV size. Left ventricular systolic function is normal. The left ventricular ejection fraction is 55 %. No regional wall motion abnormalities noted. Right Ventricle Normal RV size. Normal systolic function. Atria Normal left atrium. Normal right atrium. Mitral Valve Normal mitral valve. Tricuspid Valve Normal tricuspid valve. Aortic Valve Trisinus/trileaflet aortic valve. Mild (1+) aortic valve insufficiency. Great Vessels Normal sized aortic root. The pulmonary artery is normal size. Inferior vena cava collapse with respiration. Pericardium/Pleural No pericardial effusion. MMode/2D Measurements & Calculations LVIDd: 5.3 cm IVSd: 1.2 cm Ao root diam: 3.8 cm LVIDs: 3.8 cm LVPWd: 1.4 cm RVDd: 3.4 cm FS: 28.9 % LAV(MOD-bp): 33.3 ml LVAd ap4: 30.3 cm2 SV(MOD-sp4): 52.6 ml LAV(MOD-bp) Indexed: 16.2 ml/m2 LVLd ap4: 8.4 cm SI(MOD-sp4): 25.7 ml/m2 LAV(MOD-sp2): 38.2 ml EDV(MOD-sp4): 88.2 ml LAV(MOD-sp4): 29.5 ml EDV(sp4-el): 93.0 ml LVAs ap4: 17.7 cm2 LVLs ap4: 7.5 cm ESV(MOD-sp4): 35.6 ml ESV(sp4-el): 35.3 ml EF(MOD-sp4): 59.6 % EF(sp4-el): 62.1 % SV(sp4-el): 57.7 ml LA dimension(2D): 4.2 cm LA A4 area: 12.8 cm2 RA A4 area: 11.0 cm2 TAPSE: 2.0 cm Time Measurements MV dec time: 0.39 sec Doppler Measurements & Calculations MV E max indra: 51.1 cm/sec Lat Peak E' Indra: 10.3 cm/sec Med Peak E' Indra: 5.5 cm/sec MV A max indra: 96.6 cm/sec E/E' lat: 4.9 E/E' med: 9.3 MV E/A: 0.53 MV V2 max: 118.6 cm/sec MV P1/2t max indra: 67.9 cm/sec Ao V2 max: 112.7 cm/sec MV max P.6 mmHg MV P1/2t: 145.8 msec Ao max P.1 mmHg MV V2 mean: 55.0 cm/sec Ao V2 mean: 74.6 cm/sec MV mean P.4 mmHg MV dec slope: 136.5 cm/sec2 Ao mean P.7 mmHg MV V2 VTI: 26.0 cm MVA(P1/2t): 1.5 cm2 Ao V2 VTI: 24.1 cm AI max indra: 434.8 cm/sec LV V1 max: 104.0 cm/sec PA V2 max: 99.4 cm/sec AI max P.6 mmHg LV V1 max P.3 mmHg AI dec slope: 252.1 cm/sec2 AI P1/2t: 505.1 msec ECHO/Echo Complete Interpretation Summary Normal LV size. Left ventricular systolic function is normal. The left ventricular ejection fraction is 55 %. Mild (1+) aortic valve insufficiency. Structurally normal valves. Ordering Physician: Arik Gottlieb Referring Physician: Arik Gottlieb Performed By: Jm Valera RCS
--- NOTE | 2024-10-01 07:04 | STRESSREP ---
Stress Test Report Pharmacologic myocardial perfusion stress test. 79-year-old man with history of coronary disease for preoperative cardiac evaluation Resting EKG demonstrates sinus rhythm with a right bundle branch block with a rate of 68 bpm. Resting blood pressure is 132/70 mmHg. 0.4 mg of regadenoson was infused per usual protocol followed by rapid intravenous saline flush injection. Continuous EKG monitoring was performed. The maximum heart rate was 87 bpm which was 62% of max impacted heart rate the maximum workload was 1 metabolic equivalent. At rest there were no ST or T wave changes noted to suggest ischemia and at peak infusion nonspecific ST changes were noted which did not meet the criteria for ischemia. No clinical angina is noted. The final blood pressure was 120/70 mmHg. Myocardial perfusion protocol. 13.3 mCi of technetium 99m sestamibi was injected at rest. 0.4 mg of regadenoson was infused per usual protocol. At peak infusion 41.7 mCi of technetium 99m sestamibi was injected stress images were obtained stress and rest images were reconstructed and compared in the short axis vertical long and horizontal long axis. Gated images were also obtained. Perfusion SPECT analysis: Review of the stress images demonstrate normal uptake of tracer noted in all areas of the myocardium. There is significant GI attenuation artifact noted in the inferior wall and inferolateral wall. There is thus some reduction of perfusion noted in this area. The resting images demonstrate an improvement but with GI attenuation artifact as well. Ischemia cannot be completely excluded though less likely. Gated SPECT analysis: The gated ejection fraction is 52%. Conclusion: Probably normal pharmacologic myocardial perfusion stress test. Preserved ejection fraction. GI attenuation artifact present.
== END | disposition home or self-care (01) ==
LOC: CVS 07:09
PROVIDERS: PCP Internal Medicine; Referring Provider Nurse Practitioner Family; Visit Provider Nurse Practitioner Family
DX: I25.10 Atherosclerotic heart disease of native coronary artery without angina pectoris (principal); J44.9 Chronic obstructive pulmonary disease, unspecified; E11.9 Type 2 diabetes mellitus without complications; Z95.1 Presence of aortocoronary bypass graft; I10 Essential (primary) hypertension; E78.5 Hyperlipidemia, unspecified; G47.33 Obstructive sleep apnea (adult) (pediatric); E66.9 Obesity, unspecified
CPT/HCPCS: 78452; 93017; 93306; A9500; A4216; J2785

== ENCOUNTER 2024-10-12 11:50 | Outpatient (RCR) | payer MEDICARE, OTHER, SELFPAY ==
--- NOTE | 2024-10-12 12:36 | HP.PTEVAL_ITS ---
Patient's Visit Information Visit Information Visit Information: AUSTIN POWELL is a 79 year old M referred to Physical Therapy by Dr. Toby Larsen DO with a diagnosis of dizzyness. Date of Evaluation: 10/12/24 Physical Therapist: Imer Silva, DPT, OCS, CSCS Visit Plan Plan: No skilled PT required, pt back to normal activities and asymptomatic today. Will let doctor know if symptoms return. Subjective Subjective: 2 weeks ago on Friday night took contact out and felt unsteady, helped him into bed and got up in bathroom the next day and it happened again. Was OK in bed in between. [place] like windows were moving that day. Went to ER and had catscan, x ray, MRI, blood tests, EKG and found nothing. All normal. [place] like a major vertigo. Had one previous episode of vertigo having stephanie and it helped. [place] more steady going home but not normal. Now is 99% back to normal. Activities this week are normal. Sleep is normal. Hobbies include classic cars. Could do it. Not employed. Basic ADLs all normal. Objective Objective: Walks with cane into PT and without AD for FGA today I, transfers I bed and chair, steps reciprocal with one rail. Cervical aROM WFL symmeetrically limited and not painful. UE AROM WFL and strength elevation at 4-/5 B. - b hallpike jaime - roll tests Oculomotor is unremarkable: no nystagmus with gaze or heead shake - skew eye deviation, - ocuular tilt, - head thrust normal pursuit and saccades and normal H and V VOR, no symptoms ellicited today. MSQ positions are normal adn asymptomatic Balance/Special Test Scores Functional Gait Assessment Score: 25 % Disability: 16.6700 Dizziness Score: 42 Rehabilitation Potential Physical Therapy Diagnosis: resolved vertigo Anticipated Interventions Text: Thank you for the opportunity to evaluate your patient. For Medicare and Medicare HMO plans, please review the plan of care and approve it. It will need to be FAXED BACK to us at [phone] for Medicare purposes. For Medicare only, by signing this I certify the plan of care. Please let me know if there are questions or concerns regarding this plan of care. Physician Signature: Date:
== END 2024-10-12 12:45 | disposition home or self-care (01) ==
LOC: PT 11:50
PROVIDERS: PCP Internal Medicine; Referring Provider Hospitalist; Visit Provider Hospitalist
DX: R42 Dizziness and giddiness (principal)
CPT/HCPCS: 97162

== ENCOUNTER 2024-12-17 10:30 | Outpatient (RCR) | payer MEDICARE, OTHER, SELFPAY ==
--- NOTE | 2024-11-18 12:00 | HP.PTEVAL ---
Patient's Visit Information Visit Information Visit Information: AUSTIN POWELL is a 79 year old M referred to Physical Therapy by Zofia Del Valle PA-C with a diagnosis of Status post lumbar spinal fusion, Z98.1. Date of Evaluation: 11/18/24 Physical Therapist: Felix Salas Visit Plan Frequency: 2x /Week Duration: 6 Weeks Plan: Continue to work on improving core, back, and hip strength. Also add balance exercises as well. Use manual therapy and modalities as needed for pain control. Subjective Subjective: Pt. is a 79 y.o. male who had been having bilateral leg pain for months. Pt. PLOF includes history of back pain occasionally in the past. He eventually had imaging which showed severe lumbar spine stenosis, arthritis, and disc bulge. Pt. had lumbar spine surgery on 10-19-24 for L3-L4 laminectomy and also L4-L5 fusion. Pt. is currently ambulating with a rolling walker. He was using a cane prior to his surgery. Pt. denies any pain in his legs. He denies any falls. Pt. has difficulty with walking, walking on uneven ground, bending forward to pick something up, occasionally sleeping, lifting things, pushing/pulling, ascending/descending stairs, squatting, housework, and yard work. Pt. is retired and was a teacher previously. His goal with physical therapy is to get back to normal and be able to do his activity. Pt. rates back pain at 2/10 currently, at worst 2/10, at best 0/10 and describes the pain as achy. He does not take any pain medication. His PMH includes open heart surgery, tongue cancer, jaw surgery, type II diabetes, former smoker, and sleep apnea. Pt. lives with his in a one story home with two steps to enter. His hobbies include working on classic cars and playing cards. Objective Objective: Posture- Good posture in standing Observation- Incision of lumbar spine midline Lumbar AROM- NT Left LE strength hip flexion 4+/5, abduction 4+/5, adduction 5/5, extension 4+/5, knee flexion 5/5, knee extension 5/5, ankle DF 5/5, ankle PF 5/5 Right LE strength hip flexion 4+/5, abduction 4+/5, adduction 5/5, extension 4+/5, knee flexion 5/5, knee extension 5/5, ankle DF 5/5, ankle PF 5/5 Sensation- WNL bilateral lower extremities Tandem stance on left 20 secs, right 18 secs SLS on left 1 sec, right 5 secs Gait- Pt. ambulates with rolling walker and no gait deviations. Balance/Special Test Scores Oswestry Low Back Score: 7 Goals Goal 1:: Pt. will be independent with home exercise program. Goal Time Frame: 4-6 Weeks Goal 2:: Pt. will be able to ambulate with no assistive device or gait deviations. Goal Time Frame: 4-6 Weeks Goal 3:: Pt. will be able to ascend/descend a flight of stairs with alternating step pattern and unilateral handrail. Goal Time Frame: 4-6 Weeks Goal 4:: Pt. will be able to sleep a full night with no interruption due to pain. Goal Time Frame: 4-6 Weeks Goal 5:: Pt. will rate pain at worst at 3/10 with ADL's. Goal Time Frame: 4-6 Weeks Goal 6:: Pt. will improve back Oswestry Index < 10% impairment in order to improve mobility. Goal Time Frame: 4-6 Weeks Rehabilitation Potential Physical Therapy Diagnosis: Decreased core/back strength, difficulty walking, balance impairment, and pain Rehabilitation Potential: Good Anticipated Interventions Patient/Client Instruction: Educate patient on: Condition and Plan of Care For the Purpose of:: To decrease pain, To improve ability to perform ADL's, To improve performance and independence with ADL's, To improve endurance, To improve balance, To improve safety with gait, To assume or resume ADL's and To improve tolerance to ADL's Therapeutic Exercise to Include: Strength training, Endurance training, Balance training, Postural training, Gait and locomotor training and Dynamic Lumbar Stabilization Comment: Continue with improving core, back, and hip strengthening. Also add balance exercises as well. For the Purpose of:: To decrease pain, To improve ability to perform ADL's, To improve performance and independence with ADL's, To increase flexibility/ROM, To improve endurance, To improve balance, To improve safety with gait, To assume or resume ADL's and To improve tolerance to ADL's Functional Training to Include: ADL Training and Gait training For the Purpose of:: To decrease pain, To improve ability to perform ADL's, To improve performance and independence with ADL's, To increase flexibility/ROM, To improve endurance, To improve balance, To improve safety with gait, To assume or resume ADL's and To improve tolerance to ADL's Manual Therapy Techniques to Include: Soft tissue mobilization For the Purpose of:: To decrease pain, To increase ROM, To improve ability to perform ADL's, To improve performance and independence with ADL's, To increase flexibility/ROM, To assume or resume ADL's and To improve tolerance to ADL's Assistive Devices: Cane For the Purpose of:: To improve ability to perform ADL's, To improve balance, To improve safety with gait, To improve safety and To improve tolerance to ADL's TENS: Yes IF ES: Yes Cryotherapy (ice pack, ice massage): Yes Thermo therapy (hot pack): Yes For the Purpose of:: To decrease pain, To increase ROM, To increase flexibility/ROM, To assume or resume ADL's and To improve tolerance to ADL's Text: Thank you for the opportunity to evaluate your patient. For Medicare and Medicare HMO plans, please review the plan of care and approve it. It will need to be FAXED BACK to us at [phone] for Medicare purposes. For Medicare only, by signing this I certify the plan of care. Please let me know if there are questions or concerns regarding this plan of care. Physician Signature: Date:
--- NOTE | 2024-12-17 13:06 | HP.PTDCSUM ---
Discharge Summary D/C summary: It has been my pleasure to treat AUSTIN POWELL referred by Zofia Del Valle PA-C, with the diagnosis of Status post lumbar spinal fusion, Z98.1 for a total of 8 visit(s). Discharge Date: 12/17/24 Please see the following information for a summary of their discharge status. Subjective Subjective: Pt. reports overall doing well. He reports walking is going well. Pt. is going all of his exercises at home without issues. Pt. reports being 90% better overall. Pain lumbar: Pain Intensity (Out of 10): 0 Overall Improvement % Improvement: 90 Objective Objective/Function: STAIRS: 1 HR with recirpocal pattern. GAIT: Pt. ambulates well without AD without issues. ROM: flexion min/mod loss NE, ext mod loss NE, SB min loss bilat NE, rotation min loss bilat NE. Pt. has tight HS bilaterally. MMT: Pt. has full strength in BLEs. Fair- core strength. Pt. is overall doing well. I am going to DC him back to all HEP this date. Goals Goal 1:: Pt. will be independent with home exercise program. Goal Progress: Goal Met Goal 2:: Pt. will be able to ambulate with no assistive device or gait deviations. Goal Progress: Goal Met Goal 3:: Pt. will be able to ascend/descend a flight of stairs with alternating step pattern and unilateral handrail. Goal Progress: Goal Met Goal 4:: Pt. will be able to sleep a full night with no interruption due to pain. Goal Progress: Goal Met Goal 5:: Pt. will rate pain at worst at 3/10 with ADL's. Goal Progress: Goal Met Goal 6:: Pt. will improve back Oswestry Index < 10% impairment in order to improve mobility. Goal Progress: Goal Met Plan Plan: Pt. to be DC from PT to HEP at this point in time. He has met all goals and is doing well. D/C Information d/c sentence: If there are questions or concerns regarding this patient's physical therapy, please feel free to call me at [phone]. Thank you for the referral of this patient. Sincerely, Jerry Cabrera Sipos, DPT Balance/Gait/Functional tests Balance/Special Test Scores Oswestry Low Back Score: 7 Improvement % Improvement: 90
== END 2024-12-17 19:00 | disposition home or self-care (01) ==
LOC: PT 10:30
PROVIDERS: PCP Internal Medicine; Referring Provider Physician Assistant; Visit Provider Physician Assistant
DX: Z98.1 Arthrodesis status (principal)
CPT/HCPCS: 97110; 97162; 97530

== ENCOUNTER → 2025-06-07 | Outpatient (CLI) | payer MEDICARE, OTHER, SELFPAY ==
[2025-06-07 12:38] LABS: Hematocrit 42.9 % (40-54); Hemoglobin 13.7 g/dL (13.0-16.5); Mean Corp Hgb Conc 31.9 g/dL (32-36); Mean Corpuscular Volume 98.4 fL (80-94); Mean Platelet Vol. 10.6 fl (6.2-12.0); POSITIVE COUNT YES; POSITIVE MORPHOLOGY YES; Platelet Count 106 K/mm3 (150-450); RBC Distribution Width CV 13.1 % (11.6-14.6); RBC Distribution Width SD 47.2 fl (35.1-43.9); Red Blood Count 4.36 M/mm3 (4.6-6.2); White Blood Count 7.1 K/mm3 (4.4-11.0)
[2025-06-07 12:40] LABS: Differential Indicated MANUAL DIFF
[2025-06-07 13:03] LABS: AST(SGOT) 17 U/L (<=37); Alanine Aminotransfer ALT/SGPT 16 U/L (<=46); Albumin, Serum 4.5 g/dL (3.4-4.8); Alkaline Phosphatase 66 U/L (40-129); Anion Gap 11 (5-15); BUN 20 mg/dL (4-19); BUN/Creat Ratio 16.8 RATIO (10-20); Calcium,Total 9.0 mg/dL (7.6-11.0); Carbon Dioxide 26.8 mmol/L (21.0-32.0); Chloride 99 mmol/L (98-108); Globulin 2.7 g/dL (2.2-4.2); Glucose 99 mg/dL (70-99); Magnesium 2.3 mg/dL (1.5-2.2); Potassium 4.6 mmol/L (3.3-5.1)
[2025-06-07 13:29] LABS: Neutrophil-Band 2 % (0-5); Neutrophil-Segmented 37 % (47-70); Total Cells Counted 100 (MANUAL DIFF)
[2025-06-07 13:30] LABS: Reactive Lymphocyte 1+
== END | disposition home or self-care (01) ==
LOC: CIMLAB 10:59
PROVIDERS: PCP Internal Medicine; Referring Provider Internal Medicine; Visit Provider Internal Medicine
DX: E11.29 Type 2 diabetes mellitus with other diabetic kidney complication (principal); E83.42 Hypomagnesemia
CPT/HCPCS: 36415; 80053; 83735; 84443; 85025